=== PATIENT | female | born 1940 | race Caucasian/White ===

== ENCOUNTER 2019-02-07 13:14 | Emergency (ER) | payer MEDICARE, OTHER ==
[2019-02-07 14:18] LABS: #Lymphocytes 1.2 thou/uL (1.20-3.40); #Monocytes 0.5 thou/uL (0.11-0.59); #Neutrophils 3.4 thou/uL (1.40-6.50); %Basophils 0.1 % (0.0-1.0); %Eosinophils 0.8 % (0.0-10.0); %Lymphocytes 23.3 % (21.0-51.0); %Monocytes 10.5 % (0.0-10.0); %Neutrophils 65.3 % (42.0-75.0); Hemoglobin 12.2 g/dL (12.0-16.0); Mean Corpuscular HGB CONC 33.9 g/dL (32.0-36.0); Mean Corpuscular Hemoglobin 31.8 pg (27.0-31.0); Mean Corpuscular Volume 93.7 fL (78.0-98.0); Mean Platelet Volume 7.2 fL (7.4-10.4); Platelet Count 238 thou/uL (130-400); RBC Distribution Width 12.8 % (11.5-14.5); Red Blood Cell (RBC) Count 3.83 mill/uL (4.20-5.40); White Blood Cell (WBC) Count 5.1 thou/uL (4.8-10.8)
[2019-02-07 14:26] LABS: Prothrombin Time 13.5 SEC (12.0-14.7)
[2019-02-07 14:44] LABS: ALT (SGPT) 25 U/L (8-55); AST (SGOT) 28 U/L (5-34); Albumin 3.3 g/dL (3.4-4.8); Alkaline Phosphatase 59 U/L (40-110); Anion Gap 9 mmol/L (10-20); BUN (Urea Nitrogen) 12 mg/dL (9.8-20.1); Bilirubin, Total 0.6 mg/dL (0.2-1.2); Calc. Creatinine Clearance 0 mL/min (70-130); Calcium 8.8 mg/dL (7.8-10.44); Carbon Dioxide 27 mmol/L (23-31); Chloride 97 mmol/L (98-107); Estimated GFR-MDRD 85; Globulin 2.3 g/dL (2.4-3.5); Glucose 99 mg/dL (83-110); Potassium 3.7 mmol/L (3.5-5.1); Protein, Total 5.6 g/dL (6.0-8.3); Sodium 129 mmol/L (136-145)
--- NOTE | 2019-02-07 16:11 | CT ---
CT Abdomen Pelvis W Con: 02/07/2019 3:16 PM CLINICAL INFORMATION: Abdominal pain and blood red blood per rectum COMPARISON: 06/05/2011 TECHNIQUE: Multiple contiguous axial images were obtained and a CT of the abdomen and pelvis with IV contrast. C oronal and sagittal reformats were performed. FINDINGS: Lower Chest: within normal limits. Abdomen: Liver: within normal limits. Bile Ducts: Normal caliber. Gallbladder: No calcified gallstones. Normal caliber wall. Pancreas: within normal limits. Spleen: within normal limits. Adrenals: within normal limits. Kidneys: Hypodensities in the bilateral kidneys measuring up to 1.7 cm in size represent cysts. Pelvis: Reproductive Organs: No pelvic masses. Ureters: within normal limits. Bladder: within normal limits. Peritoneum: No ascites or free air, no fluid collection. Bowel: Normal caliber. There is thickening of the wall of the fundus of the stomach which may be seco ndary to decompression of this portion of the stomach. Mesentery and Retroperitoneum: No enlarged mesenteric or retroperitoneal lymph nodes. Vessels: Atherosclerotic calcifications. Abdominal Wall: within normal limits. Bones: Degenerative changes in the spine. IMPRESSION: 1. No evidence of acute intraabdominal or pelvic abnormality. 2. Bilateral renal cysts
== END 2019-02-07 16:40 | disposition home or self-care (01) ==
LOC: ERS 13:14
DX: K62.5 Hemorrhage of anus and rectum (principal); E78.5 Hyperlipidemia, unspecified; E78.00 Pure hypercholesterolemia, unspecified; I10 Essential (primary) hypertension; Z79.899 Other long term (current) drug therapy
CPT/HCPCS: 36415; 74177; 80053; 85025; 85610; 85730; 86850; 86900; 86901

== ENCOUNTER 2019-08-30 18:21 | Inpatient (IN) | payer MEDICARE, OTHER ==
[2019-08-30] MEDS ORDERED: Sodium Chloride 0.9% 1,000 ML IV SCH (23:30)
[2019-08-31] MEDS ORDERED: Acetaminophen 650 MG Suppository PR PRN (00:10)
--- NOTE | 2019-08-31 00:18 | PDOC.HHP ---
Hospitalist HPI - History of Present Illness Confusion History of Present Illness: Patient found resting comfortably in bed. She has no complaints. Reportedly brought in due to AMS and fever. She has known history of dementia. Initially seen at [facility]. She was started on treatment for pneumonia and had COVID testing done. Patient transferred here for further management. She states she is not sure why she is here but is aware that she is in the hospital. Able to answer some questions appropriately but not oriented to year. At present she has no complaints. ED Course: Labs notable for lactic acid of 0.9 and leukopenia. Started on Levaquin for pneumonia and COVID testing requested. (multiple allergies to medications) She received Tylenol for low grade fever. Chest Xray done showed increased bronchovascular markings and evidence for bilateral vascular congestion with borderline cardiomegaly. Subtle increased density over the right mid lung zone, concerning for minimal or early pneumonia. Costophrenic angle blunting bialterally. CT head done showed paranasal sinus mucosal disease, otherwise no acute changes. Hospitalist ROS - Review of Systems ROS unobtainable: due to mental status (Dementia at baseline, denies any complaints but does not remember why she is here, likely does not remember if she has been ill) Constitutional: reports: fever. denies: chills, sweats, weakness, malaise, other Eyes: denies: pain, vision change, conjunctivae inflammation, eyelid inflammation, redness, other ENT: denies: ear pain, ear discharge, nose pain, nose discharge, nose congestion , mouth pain, mouth swelling, throat pain, throat swelling, other Respiratory: denies: cough, dry, shortness of breath, hemoptysis, SOB with excertion, pleuritic pain, sputum, wheezing, other Cardiovascular: denies: chest pain, palpitations, orthopnea, paroxysmal noc. dyspnea, edema, light headedness, other Gastrointestinal: denies: nausea, vomiting, abdominal pain, diarrhea, constipation, melena, hematochezia, other Genitourinary: denies: dysuria, frequency, incontinence, hematuria, retention, other Musculoskeletal: denies: neck pain, shoulder pain, arm pain, back pain, hand pain, leg pain, foot pain, other Skin: denies: rash, lesions, yaneli, bruising, other Neurological: denies: weakness, numbness, incoordination, change in speech, confusion, seizures, other Other: Aware she is at the hospital. She thinks current president is Gerson Hewitt. Does not answer when asked day or year. Hospitalist History - Past Medical History Source: patient, RN notes reviewed Cardiac: reports: AFIB Psych: reports: Other (Dementia) - Past Surgical History Past Surgical History: reports: no pertinent history - Family History Family History: reports: no pertinent history - Social History Smoking Status: Never smoker Alcohol: reports: None Living Situation: With Family - Exam General Appearance: NAD Eye: PERRL, anicteric sclera ENT: normocephalic atraumatic, no oropharyngeal lesions, dry oral mucosa Neck: supple, no lymphadenopathy Heart: RRR, normal peripheral pulses Respiratory: CTAB, no wheezes, no rales, normal chest expansion, no tachypnea Gastrointestinal: soft, non-tender, non-distended, normal bowel sounds, no guarding, no rigidity Extremities: no edema Skin: no lesions, no rashes Neurological - other findings: Oriented to person and place Musculoskeletal: normal tone, normal strength Psychiatric: normal affect, A&O x 3 Psychiatric - other findings: known dementia Hospitalist Results - Labs Result Diagrams: 08/31/19 03:33 08/31/19 03:33 Hospitalist H&P A/P - Problem (1) Confusion Code(s): R41.0 - DISORIENTATION, UNSPECIFIED Status: Acute (2) Fever Code(s): R50.9 - FEVER, UNSPECIFIED Status: Acute (3) Pneumonia Code(s): J18.9 - PNEUMONIA, UNSPECIFIED ORGANISM Status: Acute (4) Suspected COVID-19 virus infection Code(s): R68.89 - OTHER GENERAL SYMPTOMS AND SIGNS Status: Acute (5) History of hypertension Code(s): Z86.79 - PERSONAL HISTORY OF OTHER DISEASES OF THE CIRCULATORY SYSTEM Status: Chronic (6) Chronic a-fib Code(s): I48.20 - CHRONIC ATRIAL FIBRILLATION, UNSPECIFIED Status: Chronic - Plan Plan: Continue IV antibiotics. Cardiomegaly noted on CXR, no known history of CHF. Check BNP. Fluids decreased from 100 cc/hr to 65 cc/hr. Continue isolation precautions COVID testing pending. UA/UCx Monitor BP Reconcile home meds once verified. Unable to confirm code status at present.
[2019-08-31] MEDS: Acetaminophen 325 MG TAB PO PRN ×2 (00:19→20:00)
[2019-08-31] MEDS ORDERED: Sodium Chloride 0.9% 1,000 ML IV SCH (00:35)
[2019-08-31 01:28] VITALS: BMI 19.3
[2019-08-31 03:45] LABS: #Eosinphils 0.1 thou/uL (0.0-0.7); #Lymphocytes 0.8 thou/uL (1.20-3.40); #Monocytes 0.7 thou/uL (0.11-0.59); #Neutrophils 4.7 thou/uL (1.40-6.50); %Basophils 0.3 % (0.0-1.0); %Eosinophils 1.1 % (0.0-10.0); %Lymphocytes 13.1 % (21.0-51.0); %Monocytes 10.3 % (0.0-10.0); %Neutrophils 75.2 % (42.0-75.0); Hemoglobin 10.4 g/dL (12.0-16.0); Mean Corpuscular HGB CONC 33.2 g/dL (32.0-36.0); Mean Corpuscular Hemoglobin 31.9 pg (27.0-31.0); Mean Platelet Volume 6.7 fL (7.4-10.4); Platelet Count 236 thou/uL (130-400); RBC Distribution Width 14.1 % (11.5-14.5); Red Blood Cell (RBC) Count 3.28 mill/uL (4.20-5.40); White Blood Cell (WBC) Count 6.3 thou/uL (4.8-10.8)
[2019-08-31 04:02] LABS: Anion Gap 10 mmol/L (10-20); BUN (Urea Nitrogen) 9 mg/dL (9.8-20.1); Calc. Creatinine Clearance 66 mL/min (70-130); Calcium 8.1 mg/dL (7.8-10.44); Carbon Dioxide 25 mmol/L (23-31); Chloride 102 mmol/L (98-107); Estimated GFR-MDRD Greater than 90; Glucose 92 mg/dL (83-110); Potassium 3.4 mmol/L (3.5-5.1); Sodium 134 mmol/L (136-145)
[2019-08-31] MEDS ORDERED: Loperamide HCl 2 MG CAP PO PRN (10:30)
[2019-08-31] MEDS ORDERED: Bisacodyl 5 MG TAB PO PRN (10:30)
[2019-08-31] MEDS ORDERED: Calcium Carbonate 500 MG ChewTAB PO PRN (10:30)
[2019-08-31] MEDS ORDERED: Docusate 100 MG CAP PO PRN (10:34)
[2019-08-31] MEDS ORDERED: hydrALAZINE 20 MG/ML VIAL SLOW IVP PRN (10:34)
[2019-08-31] MEDS ORDERED: Melatonin 3 MG TAB PO PRN (10:34)
[2019-08-31] MEDS ORDERED: Benzonatate 100 MG CAP PO PRN (10:34)
[2019-08-31] MEDS ORDERED: Albuterol 200 PUFF (6.7GM INHALER) INH PRN (10:48)
--- NOTE | 2019-08-31 13:57 | PDOC.EVN ---
Event Note - Event Note Event Note: Seen and examined. COVID 19 Pending. no sick contacts, no COVID contacts. Subjective low grade fever. Diagnosed with dementia, patient knows self and that she lives in [place], knows birthday. Does not know the year and states it is 1983. Does not know what city she lives. Does recognize she is in the hospital, though unable to identify name of hospital or the city we're in. Could not recall we are in the city of [place] at 5 minutes after being told. Reviewed home medications and restarted as appropriate. Time given for questions all answered in detail.
[2019-08-31] MEDS: Heparin 5,000 UNITS/ML VIAL SC SCH ×3 (17:12→20:37)
[2019-08-31 18:14] LABS: Bacteria/HPF None Seen HPF (None Seen); Bilirubin Negative (Negative); Blood, Urine Negative (Negative); Clarity Clear (Clear); Glucose, Urine (Dipstick) Normal (Negative); Leukocyte Negative Leu/uL (Negative); Nitrite Negative (Negative); Protein, Urine (Dipstick) Negative (Neg-Trace); RBC/HPF 0-3 HPF (0-3); Squamous Epithelial None Seen HPF (0-3); Urobilinogen Normal mg/dL (Less than 2); WBC/HPF 0-3 HPF (0-3)
[2019-08-31 18:15] LABS: Urine Culture Reflex No No
[2019-08-31] MEDS: Carvedilol 3.125 MG TAB PO SCH (19:59)
[2019-09-01] MEDS: Levothyroxine Sodium 112 MCG TAB PO SCH (05:35)
[2019-09-01] MEDS: Acetaminophen 325 MG TAB PO PRN ×2 (05:35→17:46)
[2019-09-01] MEDS: Furosemide 20 MG TAB PO SCH (07:40)
[2019-09-01] MEDS: Lisinopril 20 MG TAB PO SCH (07:40)
[2019-09-01] MEDS: Heparin 5,000 UNITS/ML VIAL SC SCH ×3 (07:40→20:27)
[2019-09-01] MEDS: Atorvastatin Calcium 20 MG TAB PO SCH (07:40)
[2019-09-01] MEDS: Carvedilol 3.125 MG TAB PO SCH ×2 (07:41→20:26)
--- NOTE | 2019-09-01 13:00 | PDOC.HOSPP ---
- Subjective Subjective: Seen and examined. Patient was agitated and confused in the night and very restless, this morning she is more somnolent and not answering questions as well as she did yesterday. Patient knows her name and birthdate, though quickly falls asleep with any further questioning. When I asked her what state she is in she responds [place] and then immediately fall back asleep. I attempted to call her and daughter at [phone], two attempts were made and it would not let me leave a voicemail. I will attempt to call again later and give a status update. - Objective Vital Signs & Weight: Vital Signs (12 hours) Temp Pulse Resp BP Pulse Ox 09/01/19 08:00 97.9 F 68 16 135/78 95 Weight Admit Weight 116 lb Weight 116 lb 8 oz Result Diagrams: 08/31/19 03:33 08/31/19 03:33 Radiology Reviewed by me: Yes Hospitalist ROS - Review of Systems All other systems reviewed; all pertinent +/- noted in HPI/Subj - Medication Medications: Active Medications Generic Name Dose Route Start Last Admin Trade Name Freq PRN Reason Stop Dose Admin Acetaminophen 650 mg 08/31/19 00:10 09/01/19 05:35 Tylenol PO 650 mg Q4H PRN Administration Headache/Fever/Mild Pain (1-3) Atorvastatin Calcium 60 mg 09/01/19 09:00 09/01/19 07:40 Lipitor PO 60 mg DAILY ASMITA Administration Carvedilol 3.125 mg 08/31/19 21:00 09/01/19 07:41 Coreg PO 3.125 mg BID ASMITA Administration Furosemide 20 mg 09/01/19 09:00 09/01/19 07:40 Lasix PO 20 mg DAILY ASMITA Administration Heparin Sodium (Porcine) 5,000 units 08/31/19 15:00 09/01/19 07:40 Heparin SC 5,000 units TID ASMITA Administration Levofloxacin 750 mg/ Device 150 mls @ 100 mls/hr 08/31/19 15:00 08/31/19 17: 11 IVPB 150 mls Q24HR ASMITA Administration Levothyroxine Sodium 112 mcg 09/01/19 06:00 09/01/19 05:35 Synthroid PO 112 mcg 0600 ASMITA Administration Lisinopril 30 mg 09/01/19 09:00 09/01/19 07:40 Zestril PO 30 mg DAILY ASMITA Administration Melatonin 3 mg 08/31/19 10:34 08/31/19 20:00 Melatonin PO 3 mg HSPRN PRN Administration Insomnia - Exam General Appearance: NAD Eye: PERRL ENT: normocephalic atraumatic, moist mucosa Neck: supple, symmetric, no lymphadenopathy Heart: no murmur, no gallops, no rubs Respiratory: CTAB, no wheezes, no rales, no ronchi, normal chest expansion, no tachypnea Gastrointestinal: soft, non-tender, no guarding, no rigidity Extremities: no edema Skin: no lesions, no rashes Neurological: cranial nerve grossly intact, no focal deficits Musculoskeletal: generalized weakness Psychiatric: oriented to person, flat affect, somnolent Psychiatric - other findings: knows date Hosp A/P (1) Dementia Code(s): F03.90 - UNSPECIFIED DEMENTIA WITHOUT BEHAVIORAL DISTURBANCE Status: Acute (2) Confusion Code(s): R41.0 - DISORIENTATION, UNSPECIFIED Status: Acute (3) Fever Code(s): R50.9 - FEVER, UNSPECIFIED Status: Acute (4) Pneumonia Code(s): J18.9 - PNEUMONIA, UNSPECIFIED ORGANISM Status: Acute (5) Suspected COVID-19 virus infection Code(s): R68.89 - OTHER GENERAL SYMPTOMS AND SIGNS Status: Acute (6) Chronic a-fib Code(s): I48.20 - CHRONIC ATRIAL FIBRILLATION, UNSPECIFIED Status: Chronic (7) History of hypertension Code(s): Z86.79 - PERSONAL HISTORY OF OTHER DISEASES OF THE CIRCULATORY SYSTEM Status: Chronic - Plan Plan: medical unit Covid 19 pending pulmonary specific antibiotics, coverage for Covid 19 limited secondary to medical allergies supplemental oxygen is needed for O2 saturation less than 88% breathing treatments as needed frequent reorientation patient was restless and agitated in the night, did not sleep will start low dose risperidone QHS to help calm the patient and aid in more restful sleep continue other home medications is able blood pressure control blood sugar control G.I. prophylaxis DVT prophylaxis Disposition: patient's family have elected for a do not resuscitate to not intubate status, we will honor their wishes.
[2019-09-01] MEDS: risperiDONE 0.25 MG TAB PO SCH (20:26)
[2019-09-02] MEDS: Levothyroxine Sodium 112 MCG TAB PO SCH (05:28)
[2019-09-02] MEDS: Furosemide 20 MG TAB PO SCH (07:53)
[2019-09-02] MEDS: Carvedilol 3.125 MG TAB PO SCH ×2 (07:53→20:07)
[2019-09-02] MEDS: Atorvastatin Calcium 20 MG TAB PO SCH (07:53)
[2019-09-02] MEDS: Lisinopril 20 MG TAB PO SCH (07:54)
[2019-09-02] MEDS: Heparin 5,000 UNITS/ML VIAL SC SCH ×3 (07:55→20:07)
--- NOTE | 2019-09-02 09:09 | RAD ---
CHEST 1 VIEW: Date: 09/02/2019 INDICATION: Shortness of breath. FINDINGS: COPD change and mild cardiomegaly is stable. Calcified granuloma in the right upper lobe is stable ap pearing. Mild blunting of the costophrenic angles is stable appearing. Interstitial opacities involvi ng the right lower lobe on the prior examination are no longer demonstrated. No consolidation is evid ent. Vascular calcifications of the aortic arch and advanced osteoarthritic change is similar appeari ng. IMPRESSION: 1. Resolution of interstitial opacities of the right lower lobe. 2. Persistent chronic lung changes. 3. Stable mild cardiomegaly. POS: [facility]
[2019-09-02 14:10] LABS: #Eosinphils 0.1 thou/uL (0.0-0.7); #Lymphocytes 1.1 thou/uL (1.20-3.40); #Monocytes 0.5 thou/uL (0.11-0.59); #Neutrophils 3.8 thou/uL (1.40-6.50); %Basophils 0.2 % (0.0-1.0); %Eosinophils 2.5 % (0.0-10.0); %Lymphocytes 19.2 % (21.0-51.0); %Monocytes 9.3 % (0.0-10.0); %Neutrophils 68.7 % (42.0-75.0); Mean Corpuscular HGB CONC 31.8 g/dL (32.0-36.0); Mean Corpuscular Hemoglobin 30.6 pg (27.0-31.0); Mean Platelet Volume 6.7 fL (7.4-10.4); Platelet Count 305 thou/uL (130-400); RBC Distribution Width 14.1 % (11.5-14.5); Red Blood Cell (RBC) Count 4.25 mill/uL (4.20-5.40); White Blood Cell (WBC) Count 5.5 thou/uL (4.8-10.8)
[2019-09-02 14:39] LABS: Anion Gap 12 mmol/L (10-20); BUN (Urea Nitrogen) 11 mg/dL (9.8-20.1); Calc. Creatinine Clearance 56 mL/min (70-130); Carbon Dioxide 29 mmol/L (23-31); Chloride 98 mmol/L (98-107); Estimated GFR-MDRD 85; Glucose 111 mg/dL (83-110); Potassium 3.4 mmol/L (3.5-5.1); Sodium 136 mmol/L (136-145)
--- NOTE | 2019-09-02 16:57 | PDOC.HOSPP ---
- Subjective Encounter Date: 09/02/19 Subjective: Doing well. Breathing comfortably. Denies complaints. - Objective Vital Signs & Weight: Vital Signs (12 hours) Temp Pulse Resp BP Pulse Ox 09/02/19 08:00 97.5 F L 83 18 149/81 H 93 L Weight Admit Weight 116 lb Weight 116 lb 8 oz Result Diagrams: 09/02/19 13:59 09/02/19 13:59 Hospitalist ROS - Medication Medications: Active Medications Generic Name Dose Route Start Last Admin Trade Name Freq PRN Reason Stop Dose Admin Acetaminophen 650 mg 08/31/19 00:10 09/01/19 17:46 Tylenol PO 650 mg Q4H PRN Administration Headache/Fever/Mild Pain (1-3) Atorvastatin Calcium 60 mg 09/01/19 09:00 09/02/19 07:53 Lipitor PO 60 mg DAILY ASMITA Administration Carvedilol 3.125 mg 08/31/19 21:00 09/02/19 07:53 Coreg PO 3.125 mg BID ASMITA Administration Furosemide 20 mg 09/01/19 09:00 09/02/19 07:53 Lasix PO 20 mg DAILY ASMITA Administration Heparin Sodium (Porcine) 5,000 units 08/31/19 15:00 09/02/19 07:55 Heparin SC 5,000 units TID ASMITA Administration Levothyroxine Sodium 112 mcg 09/01/19 06:00 09/02/19 05:28 Synthroid PO 112 mcg 0600 ASMITA Administration Lisinopril 30 mg 09/01/19 09:00 09/02/19 07:54 Zestril PO 30 mg DAILY ASMITA Administration Melatonin 3 mg 08/31/19 10:34 08/31/19 20:00 Melatonin PO 3 mg HSPRN PRN Administration Insomnia Risperidone 0.25 mg 09/01/19 21:00 09/01/19 20:26 Risperidone PO 0.25 mg HS ASMITA Administration - Exam General Appearance: NAD, awake alert Heart: no murmur, no gallops, no rubs, normal peripheral pulses, irregular Respiratory: CTAB, no wheezes, no rales, no ronchi, normal chest expansion, no tachypnea, normal percussion Gastrointestinal: soft, non-tender, non-distended, normal bowel sounds, no palpable masses, no hepatomegaly, no splenomegaly, no bruit Extremities: no cyanosis, no clubbing, no edema Skin: normal turgor Musculoskeletal: normal tone Psychiatric: normal affect, normal behavior Psychiatric - other findings: Mild disorientation consistent with baseline. Hosp A/P (1) Acute metabolic encephalopathy Code(s): G93.41 - METABOLIC ENCEPHALOPATHY Status: Acute (2) Dementia Code(s): F03.90 - UNSPECIFIED DEMENTIA WITHOUT BEHAVIORAL DISTURBANCE Status: Acute (3) Fever Code(s): R50.9 - FEVER, UNSPECIFIED Status: Acute (4) Pneumonia Code(s): J18.9 - PNEUMONIA, UNSPECIFIED ORGANISM Status: Acute (5) Suspected COVID-19 virus infection Code(s): R68.89 - OTHER GENERAL SYMPTOMS AND SIGNS Status: Acute (6) Chronic a-fib Code(s): I48.20 - CHRONIC ATRIAL FIBRILLATION, UNSPECIFIED Status: Chronic (7) History of hypertension Code(s): Z86.79 - PERSONAL HISTORY OF OTHER DISEASES OF THE CIRCULATORY SYSTEM Status: Chronic - Plan CXR actually looks better/resolved. Change to po abx. Oxygen pretty good on room air. Discussed with CM. Patient is from home. Has her and children to stay there and help her. Anticipate she can discharge tomorrow.
[2019-09-02] MEDS ORDERED: Potassium Chloride 20 MEQ TAB PO SCH (17:00)
[2019-09-02] MEDS: risperiDONE 0.25 MG TAB PO SCH (20:07)
[2019-09-03] MEDS: Levothyroxine Sodium 112 MCG TAB PO SCH (05:30)
[2019-09-03 07:40] VITALS: BP 143/83; TEMP 98.2
[2019-09-03] MEDS: Furosemide 20 MG TAB PO SCH (08:44)
[2019-09-03] MEDS: Lisinopril 20 MG TAB PO SCH (08:44)
[2019-09-03] MEDS: Atorvastatin Calcium 20 MG TAB PO SCH (08:44)
[2019-09-03] MEDS: Carvedilol 3.125 MG TAB PO SCH (08:46)
[2019-09-03] MEDS: Heparin 5,000 UNITS/ML VIAL SC SCH ×2 (08:46→15:38)
--- NOTE | 2019-09-04 08:42 | PQF ---
[employer] Water Conservation Specialist Crystal Reports [employer] MATT Peterson RENEE CHICAS MD [id number] [facility] [id number] CLINICAL DOCUMENTATION CLARIFICATION FORM: POST DISCHARGE Addendum to original discharge summary date: ____ Late entry note date: __ DATE: 09/04/19 ATTN: Renee Chavez Please exercise your independent, professional judgment in responding to the clarification form. Clinical indicators are provided on the bottom of this form for your review Can you please further clarify if COVID19 is ruled in or ruled out? Covid19 [ ] Ruled in diagnosis [ ] Continue to treat [ ] Resolved [x ] Ruled out diagnosis [ ] Cannot rule out diagnosis [ ] Other diagnosis [ ] Unable to determine In addition, please specify: Present on Admission (POA): [ ] Yes [ ] No [ ] Unable to determine For continuity of documentation, please document condition throughout progress notes and discharge summary. Thank You. CLINICAL INDICATORS - SIGNS / SYMPTOMS / LABS ED Provider pg.5- COVID 19 rule out H and P pg.1- She was started on treatment for pneumonia and has COVID testing done H and P pg.3- Suspected COVID 19 virus infection Event notes- no sick contact, no COVID contracts RISK FACTORS 79 years old- H and P pg.1 Pneumonia- H and P pg.3 Acute metabolic encephalopathy- Hospitalist PN pg.3 Dementia- Hospitalist PN pg.3 TREATMENTS Supplemental oxygen- Hospitalist PN pg.5 Chest X ray Albuterol sulfate 2puff- MAR DuoNeb 3ml Q4hrs- MAR Levofloxacin 150ml @100ml/hr IV- MAR (This form is maintained as a part of the permanent medical record) 2014 [employer]. All Rights Reserved [email or web address]
--- NOTE | 2019-09-04 14:06 | DIS ---
DATE OF ADMISSION: 08/30/2019 DATE OF DISCHARGE: 09/03/2019 DISCHARGE DIAGNOSES: 1. Community-acquired pneumonia. 2. Acute metabolic encephalopathy, likely exacerbation of underlying dementia. 3. Dementia. 4. Chronic atrial fibrillation. 5. History of hypertension. HISTORY OF PRESENT ILLNESS: The patient is an 79-year-old female, who presented to the hospital via the emergency department with fever and some altered mental status. The patient had underlying history of dementia. She initially presented to [place], where she had COVID testing done and initial treatment started for community-acquired pneumonia. HOSPITAL COURSE: The patient was admitted, started on broad-spectrum antibiotics including Rocephin and azithromycin for specifically community-acquired pneumonia. She had a followup chest x-ray, which showed substantial improvement in resolution of the interstitial opacities of the right lower lobe, some chronic lung changes and stable mild cardiomegaly. The patient was asymptomatic, breathing comfortably and had stable vital signs. She had a negative COVID test. She had an evaluation by physical therapy and was able to get up and walk 30 feet with a rolling walker and the recommendation was for discharge to home with family support. I contacted the patient's family. They were prepared to have the patient home and to come get her. PHYSICAL EXAMINATION: VITAL SIGNS: On the day of discharge, temperature is 97.9, pulse 68, respirations 16, O2 saturation 95% to 98% on room air, BP was 135/78. GENERAL: She was awake and alert. She was still mildly confused, but fully alert. HEART: Regular. LUNGS: Clear bilaterally with no wheezes or rales. ABDOMEN: Soft, nontender. EXTREMITIES: Had no edema. DISPOSITION: The patient is discharged to home. ACTIVITY: As tolerated. DIET: She has no dietary restrictions. DISCHARGE MEDICATIONS: Include Levaquin 500 mg p.o. daily. She will continue with her home medications including; 1. Levothyroxine 112 mcg p.o. daily. 2. Oxybutynin 5 mg daily. 3. Lisinopril 30 mg daily. 4. Lasix 20 mg daily. 5. Carvedilol 1 mg b.i.d. 6. Atorvastatin 60 mg one p.o. daily. FOLLOWUP: She is to follow up with Dr. Wang in 7 days in [place] and she can return to the hospital at any time should she have the need to do so. TIME SPENT: Total time in discharge activities was greater than 30 minutes. Job ID: [id number]
--- NOTE | 2019-09-05 23:54 | PQF ---
[employer] Product Ambassador Crystal Reports [facility]ENNIFERMAT[facility] RENEE CHICAS MD [id number] [facility] [id number] CLINICAL DOCUMENTATION CLARIFICATION FORM: POST DISCHARGE Addendum to original discharge summary date: ____ Late entry note date: __ DATE: 09/05/19 ATTN: Renee Chavez Please exercise your independent, professional judgment in responding to the clarification form. Clinical indicators are provided on the bottom of this form for your review Can you please further clarify the diagnosis of the patient? Please check appropriate box(es): [ ] Sepsis due to: (Pna, UTI, gangrenous gall bladder, etc.) [ ] Severe sepsis with acute organ dysfunction of: (Examples: respiratory failure, encephalopathy, acute kidney failure, other) [ x ] Localized infection without sepsis [ ] Other diagnosis [ ] Unable to determine In addition, please specify: Present on Admission (POA): [ ] Yes [ ] No [ ] Unable to determine For continuity of documentation, please document condition throughout progress notes and discharge summary. Thank You. CLINICAL INDICATORS - SIGNS / SYMPTOMS / LABS H and P pg.1- brought in due to AMS and Fever H and P pg.1- Confusion H and P pg.1- she was started on treatment for Pneumonia H and P pg.1- labs notable for lactic acid of 0.9 and leukopenia Chest X ray pg.1- resolution of interstitial opacities of the right lower lobe Vital signs: 09/01 Temp: 98.1F, Pulse 105H, Respi 18, BP 150/90 RISK FACTORS Pneumonia- H and P pg.3 79 years old- H and P pg.1 Acute metabolic encephalopathy- Hospitalist PN pg.3 TREATMENTS: Chest X ray 09/01 IV Fluids- MAR Levofloxacin 750mg IV- MAR Albuterol 2 puff- MAR O2 supplementation (This form is maintained as a part of the permanent medical record) 2014 [employer]. All Rights Reserved [email or web address]
--- NOTE | 2019-09-05 23:57 | PQF ---
MATT RODRIGUEZ DAVID R MD [id number] CLINICAL DOCUMENTATION CLARIFICATION FORM: POST DISCHARGE Addendum to original discharge summary date: ____ Late entry note date: __ DATE: 09/05/19 ATTN: Mckinley Chavez Please exercise your independent, professional judgment in responding to the clarification form. Clinical indicators are provided on the bottom of this form for your review Can you please further clarify the specificity of Pneumonia? Please check appropriate box(s): [ ] Aspiration Pneumonia [ ] Aspiration Bronchitis [ ] Empirically treating Gram Negative Pneumonia [ ] Empirically treating Anaerobic Pneumonia [ ] Pneumonia secondary to (specify organism / underlying disease) [ x ] Simple Pneumonia (community acquired - nosocomial) [ ] Bronchopneumonia [ ] Pneumonia of unknown etiology [ ] Other diagnosis please specify [ ] Unable to determine In addition, please specify: Present on Admission (POA): [ ] Yes [ ] No [ ] Unable to determine For continuity of documentation, please document condition throughout progress notes and discharge summary. Thank You. CLINICAL INDICATORS - SIGNS / SYMPTOMS / LABS Chest X ray pg.1- resolution of interstitial opacities of the right lower lobe Vital signs: 09/01 Temp: 98.1F, Pulse 105H, Respi 18, BP 150/90 H and P pg.1- brought in due to AMS and Fever H and P pg.1- Confusion H and P pg.1- she was started on treatment for Pneumonia H and P pg.1- labs notable for lactic acid of 0.9 and leukopenia RISK FACTORS Pneumonia- H and P pg.3 79 years old- H and P pg.1 Acute metabolic encephalopathy- Hospitalist PN pg.3 TREATMENTS: Chest X ray 09/01 IV Fluids- MAR Levofloxacin 750mg IV- MAR Albuterol 2 puff- MAR O2 supplementation (This form is maintained as a part of the permanent medical record) 2014 [employer] All Rights Reserved [email or web address]
== END 2019-09-03 18:59 | disposition home or self-care (01) | DRG 193 ==
LOC: ERS 18:21 → T4-B 20:00
PROVIDERS: ADMIT Internal Medicine; ATTEND Internal Medicine
PROC: 8E0ZXY6 Isolation (ICD-10-PCS; principal; 2019-08-30)
DX: J18.9 Pneumonia, unspecified organism (principal); G93.41 Metabolic encephalopathy; I48.20 Chronic atrial fibrillation, unspecified; Z20.828 Contact with and (suspected) exposure to other viral communicable diseases; Z66 Do not resuscitate; E78.00 Pure hypercholesterolemia, unspecified; E78.5 Hyperlipidemia, unspecified; F03.90 Unspecified dementia, unspecified severity, without behavioral disturbance, psychotic disturbance, mood disturbance, and anxiety; I10 Essential (primary) hypertension; Z88.0 Allergy status to penicillin; Z88.8 Allergy status to other drugs, medicaments and biological substances; Z88.1 Allergy status to other antibiotic agents; Z79.899 Other long term (current) drug therapy
CPT/HCPCS: 36415; 71045; 80048; 81001; 83880; 85025; 99284; J1644; J1956

== ENCOUNTER 2019-09-04 10:48 | Emergency (ER) | payer MEDICARE, OTHER ==
[2019-09-04 11:38] LABS: #Eosinphils 0.2 thou/uL (0.0-0.7); #Lymphocytes 1.3 thou/uL (1.20-3.40); #Monocytes 0.5 thou/uL (0.11-0.59); #Neutrophils 2.7 thou/uL (1.40-6.50); %Basophils 0.4 % (0.0-1.0); %Eosinophils 3.5 % (0.0-10.0); %Lymphocytes 28.1 % (21.0-51.0); %Monocytes 10.7 % (0.0-10.0); %Neutrophils 57.3 % (42.0-75.0); Hemoglobin 11.3 g/dL (12.0-16.0); Mean Corpuscular Hemoglobin 31.4 pg (27.0-31.0); Mean Corpuscular Volume 95.2 fL (78.0-98.0); Mean Platelet Volume 6.5 fL (7.4-10.4); Platelet Count 287 thou/uL (130-400); RBC Distribution Width 13.9 % (11.5-14.5); Red Blood Cell (RBC) Count 3.58 mill/uL (4.20-5.40); White Blood Cell (WBC) Count 4.8 thou/uL (4.8-10.8)
[2019-09-04 11:59] LABS: ALT (SGPT) 16 U/L (8-55); AST (SGOT) 25 U/L (5-34); Albumin 2.8 g/dL (3.4-4.8); Alkaline Phosphatase 63 U/L (40-110); Anion Gap 11 mmol/L (10-20); BUN (Urea Nitrogen) 13 mg/dL (9.8-20.1); Bilirubin, Total 0.5 mg/dL (0.2-1.2); Calc. Creatinine Clearance 0 mL/min (70-130); Calcium 8.3 mg/dL (7.8-10.44); Carbon Dioxide 29 mmol/L (23-31); Chloride 99 mmol/L (98-107); Estimated GFR-MDRD 83; Globulin 2.1 g/dL (2.4-3.5); Glucose 85 mg/dL (83-110); Potassium 3.8 mmol/L (3.5-5.1); Protein, Total 4.9 g/dL (6.0-8.3); Sodium 135 mmol/L (136-145)
--- NOTE | 2019-09-04 12:32 | RAD ---
CHEST 1 VIEW: Date: 09/04/2019 HISTORY: Altered mental status. COMPARISON: 09/02/2019. FINDINGS: Stable cardiomegaly. Old granulomatous disease. Mild increased linear and interstitial markings bilat erally. Evidence for some chronic change with some chronic blunting of the costophrenic angles. IMPRESSION: Evidence for stable chronic change. No evidence for pneumonia or other significant new process. Ather osclerosis of aorta with ectasis. POS: [facility]
[2019-09-04 13:03] LABS: Actual Bicarbonate (HCO3a) 25.3 mEq/L (22-28); Analyzer IN Cardio ER; Base Excess (BEa) 1.9 mEq/L (-2.0 to +3.0); CO2 Tension 35.7 mmHg (35.0-45.0); Calcium, Ionized 1.17 mmol/L (1.12-1.30); Carboxyhemoglobin (COHb) 0.1 gm% (0.0-3.0); Hemoglobin (Hb) 11.5 g/dL (12.0-16.0); Potassium - ABG Lab 3.56 mmol/L (3.70-5.30); pH, Arterial 7.47 (7.35-7.45)
[2019-09-04 13:05] LABS: ALV-art Gradient 40.105 (0-20); Puncture Site RRA
== END 2019-09-04 16:53 ==
LOC: ERS 10:48
DX: J18.9 Pneumonia, unspecified organism (principal); R09.02 Hypoxemia; F03.90 Unspecified dementia, unspecified severity, without behavioral disturbance, psychotic disturbance, mood disturbance, and anxiety; I10 Essential (primary) hypertension; E78.5 Hyperlipidemia, unspecified; E78.00 Pure hypercholesterolemia, unspecified; Z79.899 Other long term (current) drug therapy; Z79.891 Long term (current) use of opiate analgesic
CPT/HCPCS: 71045; 80053; 82805; 83605; 85025; 87040; J1956; 36415; 96365; 96366

== ENCOUNTER 2019-11-19 03:13 | Inpatient (IN) | payer MEDICARE, OTHER ==
[2019-11-19 04:18] LABS: Bilirubin Negative (Negative); Blood, Urine Negative (Negative); Clarity Clear (Clear); Glucose, Urine (Dipstick) Normal (Negative); Ketone, Urine Negative (Negative); Leukocyte Negative Leu/uL (Negative); Nitrite Negative (Negative); Protein, Urine (Dipstick) Negative (Neg-Trace); Specific Gravity, Urine 1.009 (1.002-1.036); Urobilinogen Normal mg/dL (Less than 2); pH, Urine 6.5 (5.0-9.0)
[2019-11-19 04:21] LABS: #Monocytes 0.7 thou/uL (0.11-0.59); #Neutrophils 6.9 thou/uL (1.40-6.50); %Basophils 0.5 % (0.0-1.0); %Eosinophils 0.4 % (0.0-10.0); %Lymphocytes 11.2 % (21.0-51.0); %Monocytes 7.5 % (0.0-10.0); %Neutrophils 80.4 % (42.0-75.0); Hemoglobin 11.4 g/dL (12.0-16.0); Mean Corpuscular HGB CONC 34.5 g/dL (32.0-36.0); Mean Corpuscular Hemoglobin 29.1 pg (27.0-31.0); Mean Corpuscular Volume 84.3 fL (78.0-98.0); Mean Platelet Volume 6.5 fL (7.4-10.4); Platelet Count 366 thou/uL (130-400); RBC Distribution Width 13.5 % (11.5-14.5); Red Blood Cell (RBC) Count 3.93 mill/uL (4.20-5.40); White Blood Cell (WBC) Count 8.6 thou/uL (4.8-10.8)
[2019-11-19 04:44] LABS: ALT (SGPT) 17 U/L (8-55); AST (SGOT) 33 U/L (5-34); Albumin 3.6 g/dL (3.4-4.8); Alkaline Phosphatase 82 U/L (40-110); Anion Gap 10 mmol/L (10-20); BUN (Urea Nitrogen) 15 mg/dL (9.8-20.1); Calc. Creatinine Clearance 0 mL/min (70-130); Calcium 8.6 mg/dL (7.8-10.44); Carbon Dioxide 34 mmol/L (23-31); Estimated GFR-MDRD 79; Globulin 2.7 g/dL (2.4-3.5); Glucose 120 mg/dL (83-110); Protein, Total 6.3 g/dL (6.0-8.3)
[2019-11-19 04:48] LABS: Chloride 73 mmol/L (98-107); Potassium 2.2 mmol/L (3.5-5.1); Sodium 115 mmol/L (136-145)
[2019-11-19] MEDS ORDERED: Sodium Chloride 0.9% 1,000 ML IV SCH (06:45)
--- NOTE | 2019-11-19 06:51 | HP ---
REASON FOR ADMISSION: Change in mental status. HISTORY OF PRESENT ILLNESS: This is an 79-year-old female patient who was brought to the emergency room for increased somnolence and disorientation. In the ER, she appears to be comfortable, in no acute distress, but confused. She does follow commands. An attempt was made to contact her family members, we are waiting for them to call us back. I did review her records and it seems that she was recently in our hospital, discharged approximately a month ago. She was admitted for suspicion for left-sided weakness with confusion. It was thought that maybe she had a TIA. During her stay, she did undergo CT angio of the brain and MRI of the brain. Workup was negative for acute infarct or bleed, she remained neurologically stable, it was documented that her baseline was that she is slightly demented, she was seen by Neurology and deemed to be stable to be discharged home and since her systolic blood pressure was between 96 and 100, her Lasix was switched to alternate day therapy. PAST MEDICAL HISTORY: 1. Pneumonia. 2. Paroxysmal atrial fibrillation. 3. Dementia. 4. Left shoulder repair. 5. Cataract surgery. 6. High cholesterol. ALLERGIES: TO CEPHALOSPORIN, DIPHENHYDRAMINE, ERYTHROMYCIN, PENICILLIN, AND THEOPHYLLINE. SOCIAL HISTORY: She does not smoke. Does not drink alcohol. FAMILY HISTORY: Unable to obtain due to her confusion. REVIEW OF SYSTEMS: Unable to obtain due to her confusion. PHYSICAL EXAMINATION: GENERAL: She is awake, but she is confused. VITAL SIGNS: Blood pressure 117/64, heart rate 72, temperature is 97.7, saturating 93% on room air. HEAD: Nontraumatic, normocephalic. Pupils equal, reactive. Extraocular movements are intact. Nonicteric sclerae. Well injected conjunctivae. Oral mucosa normal. Nasal mucosa normal. NECK: Supple. No adenopathy. No murmur. Thyroid is not palpable. Trachea is midline. No supraclavicular adenopathy. HEART: S1, S2. Regular. No murmurs, no gallops. No friction rubs. No displacement of PMI. LUNGS: Clear to auscultation bilaterally. ABDOMEN: Bowel sounds are positive. Nontender abdomen. No lower extremity edema. No cyanosis. NEURO: She is moving all her 4 extremities. LABORATORY DATA: Blood work shows sodium 115, potassium 2.2, bicarb 34, glucose 120. Troponin 0.024. BNP 125. WBC 8.6, hemoglobin 11.4, platelets of 366. Urinalysis does not show any evidence of infection. Chest x-ray does not show any abnormality. Brain CT not read yet, but appears to be normal. ASSESSMENT AND PLAN: This is an 79-year-old female patient presenting with confusion, most likely secondary to severe hyponatremia in the setting of diuretic therapy. Neurology. The patient will be admitted to [facility] and we will do frequent neuro checks. She recently had a workup for stroke and everything was negative. We would not repeat any workup for now since her hyponatremia can explain her current symptomatology. Renal system, electrolytes. The patient will be receiving IV fluids. We will recheck her electrolytes later on. We will continue holding her Lasix, replenish her potassium, check a TSH, and ask Nephrology to see her in consultation. For deep venous thrombosis prophylaxis, she will be on heparin subcutaneously. I am awaiting for her med rec to be done to reconcile her medications. Job ID: [id number]
--- NOTE | 2019-11-19 07:24 | CT ---
PRELIMINARY REPORT/[facility]/EMERGENCY AFTER HOURS PROCEDURE History: AMS. CT head without contrast. Comparison: 09/06/2019. Findings: There is no evidence of acute intracranial hemorrhage. The ventricular system is not dilate d. Global volume loss. No masses, mass effect or focal fluid collections are noted. Moderate periventricular chronic white matter ischemic changes. [place]-white matter differentiation is well-maintained. Visualized portions of the orbits are normal in appearance. Mild sinus mucosal thickening. Trace fl uid in the right maxillary sinus. The calvarium and overlying soft tissues are unremarkable. Impression: 1. No evidence of acute intracranial process. Chronic senescent changes. No adverse interval allan e. 2. Sinus mucosal disease with trace right maxillary fluid. Correlate for symptoms of sinusitis. ELECTRONICALLY SIGNED BY: Dada Heart MD November 19, 2019 4:45:35 AM CDT This report is intended for review by the ordering physician only, in accordance of law. If you recei ve this report in error, please call [facility] at [phone]. FINAL REPORT Exam: Head CT without contrast HISTORY: Lower extremity weakness. Altered mental status. COMPARISON: 09/06/2019 FINDINGS: Hemorrhage: No intraparenchymal hemorrhage or extra-axial hematoma. Brain parenchyma: Cortical [place]-white matter differentiation is preserved. No mass effect or midline shift. Basilar cisterns are patent.Stable white matter hypodensities due to chronic small vessel ischemic change. Ventricular system: Ventricles and sulci are patent and symmetric. Calvarium: Intact. Sinuses and mastoid air cells: Minimal right maxillary sinus disease. IMPRESSION: 1. This report is in agreement with initial report by [facility]. 2. No acute intracranial process. Transcribed Date/Time: 11/19/2019 8:03 AM
--- NOTE | 2019-11-19 07:46 | RAD ---
EXAM: CHEST ONE VIEW HISTORY: Dyspnea. Shortness of breath. COMPARISON: 10/16/2019 FINDINGS: Cardiac silhouette is magnified by projection but mildly enlarged. Pulmonary vasculature is similar t o the prior study. No consolidation or pleural fluid is seen. Remote left-sided rib fractures are again seen. Vascular calcifications are again seen in the thoracic aorta. Chest is overall stable com pared to prior exam. IMPRESSION: Cardiomegaly with pulmonary vasculature is normal to borderline increased.
[2019-11-19] MEDS: Potassium Chloride 20 MEQ in Premix Bag 1 BAG IVPB SCH ×2 (08:23→10:30)
[2019-11-19] MEDS: Heparin 5,000 UNITS/ML VIAL SC SCH ×3 (08:24→20:59)
[2019-11-19 09:39] LABS: Anion Gap 13 mmol/L (10-20); BUN (Urea Nitrogen) 12 mg/dL (9.8-20.1); Calc. Creatinine Clearance 62 mL/min (70-130); Calcium 8.3 mg/dL (7.8-10.44); Carbon Dioxide 30 mmol/L (23-31); Chloride 77 mmol/L (98-107); Estimated GFR-MDRD 85; Glucose 104 mg/dL (83-110); Magnesium 1.5 mg/dL (1.6-2.6)
[2019-11-19 09:42] LABS: Potassium 2.5 mmol/L (3.5-5.1); Sodium 117 mmol/L (136-145)
[2019-11-19] MEDS ORDERED: Magnesium Sulfate 3 GM in Sodium Chloride 0.9% 100 ML IVPB SCH (10:00)
--- NOTE | 2019-11-19 10:05 | PDOC.HOSPP ---
- Subjective Encounter Date: 11/19/19 Encounter Time: 10:02 Subjective: calm, oriented to person and place - Objective Vital Signs & Weight: Vital Signs (12 hours) Pulse Ox 11/19/19 08:00 98 Weight Weight 129 lb 12.8 oz Most Recent Monitor Data Heart Rate from ECG 81 Respiration from ECG 21 SpO2 96 Result Diagrams: 11/19/19 04:11 11/19/19 09:05 Hospitalist ROS - Medication Medications: Active Medications Generic Name Dose Route Start Last Admin Trade Name Jimmy PRN Reason Stop Dose Admin Heparin Sodium (Porcine) 5,000 units 11/19/19 09:00 11/19/19 08:24 Heparin SC 5,000 units TID ASMITA Administration Potassium Chloride 20 meq/ 100 mls @ 50 mls/hr 11/19/19 07:00 11/19/19 08:23 Device IVPB 11/19/19 10:59 100 mls Q2H ASMITA Administration Sodium Chloride 10 ml 11/19/19 09:00 11/19/19 08:24 Flush - Normal Saline IVF 10 ml Q12HR ASMITA Administration - Exam General Appearance: awake alert Neck: no JVD Heart: RRR, murmur present, II/IV Respiratory: CTAB Gastrointestinal: soft, normal bowel sounds Extremities: no edema Hosp A/P (1) Hyponatremia Code(s): E87.1 - HYPO-OSMOLALITY AND HYPONATREMIA Status: Acute (2) Hypokalemia Code(s): E87.6 - HYPOKALEMIA Status: Acute (3) Paroxysmal atrial fibrillation Code(s): I48.0 - PAROXYSMAL ATRIAL FIBRILLATION Status: Acute (4) Hypothyroid Code(s): E03.9 - HYPOTHYROIDISM, UNSPECIFIED Status: Chronic Qualifiers: Hypothyroidism type: unspecified Qualified Code(s): E03.9 - Hypothyroidism , unspecified (5) Dyslipidemia Code(s): E78.5 - HYPERLIPIDEMIA, UNSPECIFIED Status: Chronic - Plan NS 75 ml/hr replace K+ hold diuretics cont b-alicia monitor electrolytes
[2019-11-19] MEDS: Sodium Chloride 0.9% 1,000 ML IV SCH (10:30)
[2019-11-19] MEDS: Potassium Chloride 20 MEQ TAB PO SCH ×3 (10:30→16:06)
--- NOTE | 2019-11-19 13:06 | CON ---
DATE OF CONSULTATION: 11/19/2019 SERVICE: Nephrology. REASON FOR CONSULTATION: Severe hyponatremia. REQUESTING PHYSICIAN: Carina Arcos MD. HISTORY OF PRESENT ILLNESS: An 79-year-old female with past medical history significant for paroxysmal atrial fibrillation, dementia, and recent hospitalization for pneumonia, who was just discharged from this hospital about a month ago, brought in by EMS due to acute change in mental status associated with generalized weakness. Daughter had reported that the patient was recently started on new medication thiazide, following which she lost some weight in the last several days. About the same time, the patient was noted to be confused, unable to express herself and acting abnormal. She was subsequently brought to the hospital. Evaluation with chemistry showed severe hyponatremia of 115, hence Nephrology consulted. Of note, the patient received a liter of normal saline in the ER for possible dehydration and was subsequently started on normal saline 175 mL/h. Above history was obtained from review of medical record and the patient is confused and unable to provide any significant history. No family member is at bedside. The patient recently had a left-sided weakness concerning for TIA about a month ago. During that stay, she was evaluated with CT angio and MRI of the brain, which were unremarkable. The patient is awake, but she is confused. Speech is also incoherent and confused. PAST MEDICAL HISTORY: 1. Paroxysmal atrial fibrillation. 2. Dementia. 3. Hyperlipidemia. 4. Hypertension. 5. Hypothyroidism. PAST SURGICAL HISTORY: 1. Cataract surgery. 2. Left shoulder repair. FAMILY HISTORY: Unable to obtain due to confusion. SOCIAL HISTORY: Lives with daughter. ALLERGIES: REPORTED ALLERGY AND ADVERSE REACTION TO CEPHALOSPORIN, DIPHENHYDRAMINE, ERYTHROMYCIN, PENICILLIN, AND THEOPHYLLINE. MEDICATIONS: Prior to hospital medications are as follows; 1. Lipitor 20 mg p.o. daily at bedtime. 2. Carvedilol 3.125 mg p.o. b.i.d. 3. Furosemide 20 mg p.o. daily. 4. Synthroid 125 mcg p.o. daily. 5. Metolazone 5 mg p.o. daily. 6. Mirtazapine 7.5 mg p.o. daily at bedtime. 7. Oxybutynin chloride 10 mg p.o. daily. 8. Potassium chloride 10 mEq p.o. daily. 9. Aspirin 81 mg p.o. daily. 10. Lisinopril 2.5 mg p.o. daily. REVIEW OF SYSTEMS: Could not be performed due to the patient's condition. PHYSICAL EXAMINATION: VITAL SIGNS: Temperature 98.2, pulse 87, respiratory rate 24, SpO2 of 97% on room air, blood pressure 119/67. GENERAL: Comfortable, but confused elderly female, in no obvious distress. Afebrile. Anicteric. Acyanotic. HEENT: Normocephalic, atraumatic. Oral mucosa is mildly dry. NECK: Supple with no obvious JVD. CARDIOVASCULAR: Regular rhythm and rate with normal heart sounds 1 and 2. RESPIRATORY: Fair air entry bilaterally few transmitted breath sounds, but no obvious crackle or rhonchi or use of accessory muscles. GI: Full, soft, nontender, nondistended with normal bowel sounds. MUSCULOSKELETAL: Extremities are grossly normal looking atraumatic with no obvious edema or erythema. [employer]: The patient is conscious and awake. She is oriented to person. She is confused and disoriented. Cranial nerves 2 through 12 are grossly intact. The patient moves all extremities. DIAGNOSTIC DATA: CBC on presentation showed WBC 8.6, hemoglobin 11.4, MCV 84.3, platelet 366. Chemistry on presentation showed sodium 115, potassium 2.2, chloride 73, CO2 of 34, BUN 15, creatinine 0.71, glucose 120, calcium 8.6, bilirubin 1.0, AST 33, ALT 17, alkaline phosphatase 82, total protein 6.3, albumin 3.6. Cardiac markers showed troponin 0.024. BNP 125. Lactic acid is 0.7. Urinalysis on presentation showed clear colorless urine with pH of 6.5, specific gravity of 1.009. Negative protein, ketone, blood, nitrite, bilirubin, and leukocyte esterase. ASSESSMENT: 1. Acute encephalopathy: Most likely due to severe hyponatremia superimposed on baseline dementia. 2. Severe and symptomatic hyponatremia: Most likely due to syndrome of inappropriate antidiuretic hormone secretion related to thiazide diuretics and severe hypokalemia. The patient has had recurrent hyponatremias as noted in previous hospitalization. 3. Possible syndrome of inappropriate antidiuretic hormone secretion. 4. Severe hypokalemia. 5. The patient was recently started on thiazide diuretics and this most likely is responsible for the hypokalemia. 6. History of dementia. 7. Hypothyroidism. 8. History of hypertension: Blood pressure is well controlled. PLAN: 1. We will get stat BMP as well as urine osmolality and plasma osmolality. We will also get urine sodium. We will also replete serum potassium with potassium chloride orally. We will give 120 mEq of potassium chloride. 2. We will also get serum magnesium. 3. Start BMP reviewed and this showed a sodium of 117, potassium of 2.5, chloride 77, CO2 of 30, BUN 12, creatinine 0.67. 4. Serum osmolality is 242, while urine osmolality is 325. 5. Magnesium is 1.5. 6. We will give 3 g of magnesium sulfate with a view to correcting serum potassium. 7. We will stop normal saline infusion. 8. We will start fluid restriction at 1500. 9. We would not be giving hypertonic solution at this point as the patient is already up by 2 units. We will monitor electrolytes with repletion of serum potassium. 10. We will repeat BMP in next 4 hours. Further treatment to follow depending on hospital course. Job ID: [id number]
[2019-11-19 13:21] LABS: Anion Gap 14 mmol/L (10-20); BUN (Urea Nitrogen) 11 mg/dL (9.8-20.1); Calc. Creatinine Clearance 60 mL/min (70-130); Calcium 8.4 mg/dL (7.8-10.44); Carbon Dioxide 29 mmol/L (23-31); Chloride 77 mmol/L (98-107); Estimated GFR-MDRD 81; Glucose 112 mg/dL (83-110); Potassium 3.1 mmol/L (3.5-5.1)
[2019-11-19 13:23] LABS: Sodium 117 mmol/L (136-145)
[2019-11-19 18:37] LABS: Anion Gap 11 mmol/L (10-20); BUN (Urea Nitrogen) 11 mg/dL (9.8-20.1); Calc. Creatinine Clearance 63 mL/min (70-130); Calcium 8.6 mg/dL (7.8-10.44); Carbon Dioxide 31 mmol/L (23-31); Chloride 83 mmol/L (98-107); Estimated GFR-MDRD 86; Glucose 97 mg/dL (83-110); Potassium 3.6 mmol/L (3.5-5.1); Sodium 121 mmol/L (136-145)
[2019-11-19 20:38] LABS: Anion Gap 10 mmol/L (10-20); BUN (Urea Nitrogen) 10 mg/dL (9.8-20.1); Calc. Creatinine Clearance 63 mL/min (70-130); Calcium 8.2 mg/dL (7.8-10.44); Carbon Dioxide 30 mmol/L (23-31); Chloride 84 mmol/L (98-107); Estimated GFR-MDRD 86; Glucose 92 mg/dL (83-110); Potassium 3.5 mmol/L (3.5-5.1); Sodium 120 mmol/L (136-145)
[2019-11-19] MEDS: Atorvastatin Calcium 20 MG TAB PO SCH (20:59)
[2019-11-19] MEDS: Carvedilol 3.125 MG TAB PO SCH (20:59)
[2019-11-19] MEDS ORDERED: Carvedilol 3.125 MG TAB PO SCH (21:00)
[2019-11-20 01:24] LABS: Anion Gap 9 mmol/L (10-20); BUN (Urea Nitrogen) 10 mg/dL (9.8-20.1); Calc. Creatinine Clearance 62 mL/min (70-130); Calcium 8.1 mg/dL (7.8-10.44); Carbon Dioxide 31 mmol/L (23-31); Chloride 87 mmol/L (98-107); Estimated GFR-MDRD 85; Glucose 88 mg/dL (83-110); Potassium 3.4 mmol/L (3.5-5.1); Sodium 124 mmol/L (136-145)
[2019-11-20] MEDS: Sodium Chloride 0.9% 1,000 ML IV SCH (02:01)
[2019-11-20 04:11] LABS: #Eosinphils 0.1 thou/uL (0.0-0.7); #Lymphocytes 0.9 thou/uL (1.20-3.40); #Monocytes 0.6 thou/uL (0.11-0.59); #Neutrophils 5.6 thou/uL (1.40-6.50); %Eosinophils 1.7 % (0.0-10.0); %Lymphocytes 12.9 % (21.0-51.0); %Monocytes 8.2 % (0.0-10.0); %Neutrophils 77.2 % (42.0-75.0); Hemoglobin 11.3 g/dL (12.0-16.0); Mean Corpuscular HGB CONC 33.5 g/dL (32.0-36.0); Mean Corpuscular Hemoglobin 29.2 pg (27.0-31.0); Mean Corpuscular Volume 87.2 fL (78.0-98.0); Mean Platelet Volume 6.7 fL (7.4-10.4); Platelet Count 343 thou/uL (130-400); RBC Distribution Width 13.6 % (11.5-14.5); Red Blood Cell (RBC) Count 3.85 mill/uL (4.20-5.40); White Blood Cell (WBC) Count 7.2 thou/uL (4.8-10.8)
[2019-11-20 04:12] LABS: Phosphorus 2.4 mg/dL (2.3-4.7)
[2019-11-20 04:17] LABS: Anion Gap 11 mmol/L (10-20); BUN (Urea Nitrogen) 10 mg/dL (9.8-20.1); Calc. Creatinine Clearance 63 mL/min (70-130); Calcium 7.6 mg/dL (7.8-10.44); Carbon Dioxide 28 mmol/L (23-31); Chloride 88 mmol/L (98-107); Estimated GFR-MDRD 86; Glucose 79 mg/dL (83-110); Potassium 3.5 mmol/L (3.5-5.1); Sodium 123 mmol/L (136-145)
[2019-11-20] MEDS: Potassium Chloride 20 MEQ TAB PO SCH ×2 (05:31→09:48)
[2019-11-20] MEDS: Levothyroxine Sodium 125 MCG TAB PO SCH (05:32)
[2019-11-20 07:56] LABS: Anion Gap 11 mmol/L (10-20); BUN (Urea Nitrogen) 10 mg/dL (9.8-20.1); Calc. Creatinine Clearance 67 mL/min (70-130); Calcium 8.2 mg/dL (7.8-10.44); Carbon Dioxide 27 mmol/L (23-31); Chloride 90 mmol/L (98-107); Estimated GFR-MDRD Greater than 90; Glucose 84 mg/dL (83-110); Potassium 3.6 mmol/L (3.5-5.1); Sodium 124 mmol/L (136-145)
[2019-11-20] MEDS ORDERED: Levothyroxine Sodium 112 MCG TAB PO SCH (09:00)
[2019-11-20] MEDS: Heparin 5,000 UNITS/ML VIAL SC SCH ×3 (09:47→20:58)
[2019-11-20] MEDS: Carvedilol 3.125 MG TAB PO SCH ×2 (09:47→21:00)
[2019-11-20] MEDS: Aspirin 81 mg Enteric Coated Tablet PO SCH (09:47)
--- NOTE | 2019-11-20 10:12 | PRG ---
DATE OF SERVICE: 11/20/2019 SERVICE: Nephrology. SUBJECTIVE: An 79-year-old female seen in followup for symptomatic hyponatremia. The patient is more awake and conversational today. She is tolerating oral intake. No fever, nausea, or vomiting. OBJECTIVE: VITAL SIGNS: Temperature 97.2, pulse 94, respiratory rate 21, and blood pressure 117/60. I and O in the last 24 hours showed total intake of 840 with total output of 1250. This, however, is inconclusive as the patient is incontinent and most of the void were not calculated. GENERAL: Comfortable elderly female, in no obvious distress. Afebrile. Anicteric. Acyanotic. HEENT: Normocephalic, atraumatic. Oral mucosa is mildly dry. NECK: Supple with no JVD. CARDIOVASCULAR: Regular rhythm and rate with normal heart sounds 1 and 2. Soft systolic murmur noted. RESPIRATORY: Fair air entry bilaterally with few bibasilar crackles, especially on the left side posteriorly. GASTROINTESTINAL: Flat, soft, nontender, and nondistended with normal bowel sounds. EXTREMITIES: Grossly normal looking, atraumatic with no edema or erythema. CENTRAL NERVOUS SYSTEM: Conscious and alert. Oriented to person at least. The patient does not know where she is, however. She is conversational and making more sense today. DIAGNOSTIC DATA: CBC showed WBC count of 7.2, hemoglobin of 11.3, MCV of 87.2, and platelet of 343. Chemistry showed sodium 124, potassium 3.6, chloride 90, CO2 of 27, BUN 11, creatinine 0.62, glucose 84, calcium 8.2, phosphorus is 2.4, and magnesium is 2.0. ASSESSMENT: 1. Hyponatremia: Improving with fluid restriction. Sodium is currently 124. Hyponatremia is thought to be due to thiazide diuretics with possible baseline syndrome of inappropriate antidiuretic hormone. Urine and plasma electrolytes are consistent with syndrome of inappropriate antidiuretic hormone secretion. Hypokalemia also could lead to inability to excrete free water. 2. Hypokalemia: Improved. 3. Hypomagnesemia: Repleted. 4. Mental status change: Due to hyponatremia, superimposed on baseline dementia. 5. Acute encephalopathy due to hyponatremia. PLAN: 1. We will continue fluid restriction. 2. Continue to avoid diuretics, especially thiazide type. 3. [place] solute intake advised. 4. We will continue to monitor chemistry. 5. We will also give additional potassium to get serum potassium above 4. 6. Recommend discontinuation of normal saline. 7. Further treatment to follow depending on hospital course. Job ID: [id number]
--- NOTE | 2019-11-20 10:25 | PDOC.HOSPP ---
- Subjective Encounter Date: 11/20/19 Encounter Time: 10:23 Subjective: oriented to person - Objective Vital Signs & Weight: Vital Signs (12 hours) Temp Pulse Ox 11/20/19 07:26 97.2 F L 94 L 11/20/19 03:27 97.9 F 11/19/19 23:25 97.3 F L Weight Weight 129 lb Most Recent Monitor Data Heart Rate from ECG 64 NIBP 117/60 NIBP BP-Mean 79 Respiration from ECG 36 SpO2 75 I&O: 11/19/19 11/20/19 11/21/19 06:59 06:59 06:59 Intake Total 840 Output Total 1250 Balance -410 Result Diagrams: 11/20/19 03:08 11/20/19 07:11 Hospitalist ROS - Medication Medications: Active Medications Generic Name Dose Route Start Last Admin Trade Name Freq PRN Reason Stop Dose Admin Aspirin 81 mg 11/20/19 09:00 11/20/19 09:47 Ecotrin PO Not Given DAILY ASMITA Atorvastatin Calcium 20 mg 11/19/19 21:00 11/19/19 20:59 Lipitor PO 20 mg HS ASMITA Administration Carvedilol 3.125 mg 11/19/19 21:00 11/20/19 09:47 Coreg PO Not Given BID ASMITA Heparin Sodium (Porcine) 5,000 units 11/19/19 09:00 11/20/19 09:47 Heparin SC Not Given TID ASMITA Levothyroxine Sodium 125 mcg 11/20/19 06:00 11/20/19 05:32 Synthroid PO 125 mcg 0600 ASMITA Administration Sodium Chloride 10 ml 11/19/19 09:00 11/20/19 09:47 Flush - Normal Saline IVF Not Given Q12HR ASMIAT - Exam General Appearance: awake alert Neck: no JVD Heart: RRR, murmur present, II/IV Respiratory: CTAB, no wheezes Gastrointestinal: soft, normal bowel sounds Extremities: no edema Hosp A/P (1) Hyponatremia Code(s): E87.1 - HYPO-OSMOLALITY AND HYPONATREMIA Status: Acute (2) Hypokalemia Code(s): E87.6 - HYPOKALEMIA Status: Acute (3) Paroxysmal atrial fibrillation Code(s): I48.0 - PAROXYSMAL ATRIAL FIBRILLATION Status: Acute (4) Hypothyroid Code(s): E03.9 - HYPOTHYROIDISM, UNSPECIFIED Status: Chronic Qualifiers: Hypothyroidism type: unspecified Qualified Code(s): E03.9 - Hypothyroidism , unspecified (5) Dyslipidemia Code(s): E78.5 - HYPERLIPIDEMIA, UNSPECIFIED Status: Chronic - Plan move te medical DC iv NS K+ replacement fluid restriction daily BMP avoid diuretics
[2019-11-20 18:30] LABS: Anion Gap 12 mmol/L (10-20); BUN (Urea Nitrogen) 10 mg/dL (9.8-20.1); Calc. Creatinine Clearance 70 mL/min (70-130); Calcium 8.4 mg/dL (7.8-10.44); Carbon Dioxide 27 mmol/L (23-31); Chloride 92 mmol/L (98-107); Estimated GFR-MDRD Greater than 90; Glucose 69 mg/dL (83-110); Potassium 3.5 mmol/L (3.5-5.1); Sodium 127 mmol/L (136-145)
--- NOTE | 2019-11-20 19:54 | PQF ---
Q22 2018 [facility] Updated: CLINICAL DOCUMENTATION CLARIFICATION FORM: Patient Name: MATT RODRIGUEZ Account: [id number] Admit Date: 11/19/2019 Facility: [facility] Dear Dr. Sixto Johns Date: 11-20-19 Please exercise your independent, professional judgment in responding to the clarification form. Clinical indicators are provided on the bottom of this form for your review. Please check appropriate box(es): [ ] Encephalopathy: Type: [ ] Acute [ ] Subacute [ ] Chronic Etiology: [ x ] Metabolic [ ] Toxic [ ] Other (please specify) [ ] Transient Alteration of Awareness [ ] Other diagnosis [ ] Unable to determine In addition, please specify: Present on Admission (POA): [ ] Yes [ ] No [ ] Unable to determine For continuity of documentation, please document condition throughout progress notes and discharge summary. Thank You. To be completed by CDI/Coding staff for physician review: CLINICAL INDICATORS - SIGNS / SYMPTOMS / LABS / RESULTS AND LOCATION IN EMR: ER DX 11-19-19: ALTERED MENTAL STATUS, HYPONATREMIA H&P: 11-19-19 DR. MORALES: INCREASED SOMNOLENCE AND DISORIENTATION, CONFUSED CONSULT NOTE DR. BARTON 11-20-19: ACUTE ENCEPHALOPATHY. MOST LIKELY D/T SEVERE HYPONATREMIA SUPERIMPOSED ON BASELINE DEMENTIA , NOTED TO BE CONFUSED , UNABLE TO EXPRESS SELF AND ACTING ABNORMAL. RISK FACTORS / RESULTS AND LOCATION IN EMR: CONSULT NOTE DR. BARTON 11-20-19: ACUTE ENCEPHALOPATHY. MOST LIKELY D/T SEVERE HYPONATREMIA SUPERIMPOSED ON BASELINE DEMENTIA , NOTED TO BE CONFUSED , UNABLE TO EXPRESS SELF AND ACTING ABNORMAL. TREATMENTS / RESULTS AND LOCATION IN EMR: ER NOTES 11-19-19: NS IVF MAR: 11-20-19: POTASSIUM CHLORIDE IV CDS Signature: Catie Vancepatricia Phone #: [phone] Date: 11-19 This is a permanent part of the Medical Record [facility]
[2019-11-20] MEDS: Atorvastatin Calcium 20 MG TAB PO SCH (20:57)
[2019-11-21] MEDS: Levothyroxine Sodium 125 MCG TAB PO SCH (05:27)
[2019-11-21 06:44] LABS: Anion Gap 11 mmol/L (10-20); BUN (Urea Nitrogen) 10 mg/dL (9.8-20.1); Calc. Creatinine Clearance 70 mL/min (70-130); Calcium 8.3 mg/dL (7.8-10.44); Carbon Dioxide 26 mmol/L (23-31); Chloride 92 mmol/L (98-107); Estimated GFR-MDRD Greater than 90; Glucose 76 mg/dL (83-110); Potassium 3.4 mmol/L (3.5-5.1); Sodium 126 mmol/L (136-145)
[2019-11-21] MEDS: Carvedilol 3.125 MG TAB PO SCH ×2 (09:18→21:03)
[2019-11-21] MEDS: Aspirin 81 mg Enteric Coated Tablet PO SCH (09:18)
[2019-11-21] MEDS: Potassium Chloride 20 MEQ TAB PO SCH ×2 (09:19→10:33)
[2019-11-21] MEDS: Heparin 5,000 UNITS/ML VIAL SC SCH ×3 (09:20→21:02)
--- NOTE | 2019-11-21 12:47 | PDOC.HOSPP ---
- Subjective Encounter Date: 11/21/19 Encounter Time: 12:45 Subjective: alert, no sob - Objective Vital Signs & Weight: Vital Signs (12 hours) Temp Pulse Resp BP Pulse Ox 11/21/19 09:23 97.9 F 90 20 141/83 H 93 L 11/21/19 08:00 93 L 11/21/19 05:06 98.3 F 73 16 122/76 94 L Weight Admit Weight 129 lb 12.8 oz Weight 129 lb Most Recent Monitor Data Heart Rate from ECG 64 NIBP 117/60 NIBP BP-Mean 79 Respiration from ECG 36 SpO2 75 I&O: 11/20/19 11/21/19 11/22/19 06:59 06:59 06:59 Intake Total 840 350 200 Output Total 1250 Balance -410 350 200 Result Diagrams: 11/20/19 03:08 11/21/19 05:56 Additional Labs: Accuchecks 11/20/19 11/20/19 20:27 15:45 POC Glucose 114 H 86 Hospitalist ROS - Medication Medications: Active Medications Generic Name Dose Route Start Last Admin Trade Name Ruiq PRN Reason Stop Dose Admin Aspirin 81 mg 11/20/19 09:00 11/21/19 09:18 Ecotrin PO 81 mg DAILY ASMITA Administration Atorvastatin Calcium 20 mg 11/19/19 21:00 11/20/19 20:57 Lipitor PO 20 mg HS ASMITA Administration Carvedilol 3.125 mg 11/19/19 21:00 11/21/19 09:18 Coreg PO 3.125 mg BID ASMITA Administration Heparin Sodium (Porcine) 5,000 units 11/19/19 09:00 11/21/19 09:20 Heparin SC 5,000 units TID ASMITA Administration Levothyroxine Sodium 125 mcg 11/20/19 06:00 11/21/19 05:27 Synthroid PO 125 mcg 0600 ASMITA Administration Potassium Chloride 40 meq 11/21/19 10:15 11/21/19 10:27 Klor-Con PO 11/21/19 14:16 40 meq Q4H ASMITA Administration Sodium Chloride 10 ml 11/19/19 09:00 11/21/19 10:06 Flush - Normal Saline IVF Not Given Q12HR ASMITA - Exam General Appearance: awake alert Neck: no JVD Heart: RRR, no murmur Respiratory: CTAB Gastrointestinal: soft, normal bowel sounds Extremities: no edema Hosp A/P (1) Hyponatremia Code(s): E87.1 - HYPO-OSMOLALITY AND HYPONATREMIA Status: Acute (2) Hypokalemia Code(s): E87.6 - HYPOKALEMIA Status: Resolved (3) Paroxysmal atrial fibrillation Code(s): I48.0 - PAROXYSMAL ATRIAL FIBRILLATION Status: Chronic (4) Hypothyroid Code(s): E03.9 - HYPOTHYROIDISM, UNSPECIFIED Status: Chronic Qualifiers: Hypothyroidism type: unspecified Qualified Code(s): E03.9 - Hypothyroidism , unspecified (5) Dyslipidemia Code(s): E78.5 - HYPERLIPIDEMIA, UNSPECIFIED Status: Chronic - Plan stable, hypokalemia resolved, hyponatrelia improved call daughter re DC planning
--- NOTE | 2019-11-21 14:18 | PRG ---
DATE OF SERVICE: 11/21/2019 SERVICE: Nephrology. SUBJECTIVE: This is an 79-year-old female, seen in followup for hyponatremia. The patient with dementia was admitted due to mental status change and found to have severe hyponatremia of 115, which has improved. No new problem. Mental status has improved. The patient is more cooperative. Still having waxing and waning mental status. Denied nausea, vomiting, abdominal pain or edema. Able to feed herself. OBJECTIVE: VITAL SIGNS: Temperature 98.3, pulse 73, respiratory rate 16, SpO2 of 94% on room air, and blood pressure 122/76. I and O in the last 24 hours was inconclusive. GENERAL: Comfortable elderly female, in no obvious distress. Afebrile. Anicteric. Acyanotic. HEENT: Normocephalic and atraumatic. Oral mucosa is moist. CARDIOVASCULAR: Regular rhythm and rate with normal heart sounds 1 and 2. Soft systolic murmur noted. RESPIRATORY: Fair air entry bilaterally with left base crackle posteriorly. No rhonchi or use of accessory muscles was appreciated, however. GI: Full, soft, nontender, and nondistended with normal bowel sounds. EXTREMITIES: Grossly normal looking atraumatic with no obvious edema or erythema. SKIN: Ecchymoses and bruising of both hands and forearm noted. BANQUET STEWARD: Conscious and alert. Oriented at least to person. Has waxing and waning mental status, at times she knows where she is. Memory lapses noted. Cranial nerves 2 through 12 are grossly intact. DIAGNOSTIC DATA: Chemistry today showed sodium of 126, potassium of 3.4, chloride of 92, CO2 of 26, BUN of 10, creatinine 0.59, glucose 76, and calcium 8.3. ASSESSMENT AND PLAN: 1. Hyponatremia: Symptomatic. Improved from 115 to 126 this morning. The patient, however, reached a peak of 127 yesterday. Acute drop from 127 to 126, most likely related to lab error or hypokalemia. Kidneys are still unable to excrete free water due to persistent and recurrent hypokalemia. Baseline SIADH cannot be ruled out. This may well be purely due to thiazide diuretics. 2. Hypokalemia: Recurrent. 3. Hypertension: Control is acceptable. 4. Left base crackle: Infiltrate or pulmonary congestion. The patient with mental status changes, at increased risk of aspiration. She may also have congestive heart failure. The patient was on diuretics, suggestive of CHF. 5. Acute encephalopathy: Due to hyponatremia superimposed on baseline dementia. Improving. PLAN: 1. We will continue fluid restriction. We will however decrease free water to 1 L per 24 hours. We will increase solute intake by adding Ensure. 2. [place] solute intake advised. 3. We will monitor intake and output strictly. 4. We will replete serum potassium with 80 mEq of potassium today. 5. We will also recheck BMP later this afternoon. 6. Further treatment to follow depending on hospital course. Job ID: [id number]
[2019-11-21 14:30] LABS: Anion Gap 11 mmol/L (10-20); BUN (Urea Nitrogen) 13 mg/dL (9.8-20.1); Calc. Creatinine Clearance 64 mL/min (70-130); Calcium 8.8 mg/dL (7.8-10.44); Carbon Dioxide 31 mmol/L (23-31); Chloride 92 mmol/L (98-107); Estimated GFR-MDRD 88; Glucose 123 mg/dL (83-110); Potassium 4.3 mmol/L (3.5-5.1); Sodium 130 mmol/L (136-145)
[2019-11-21] MEDS: Mirtazapine 15 MG TAB PO SCH (21:02)
[2019-11-21] MEDS: Atorvastatin Calcium 20 MG TAB PO SCH (21:02)
[2019-11-22] MEDS: Levothyroxine Sodium 125 MCG TAB PO SCH (05:02)
[2019-11-22 05:59] LABS: Anion Gap 8 mmol/L (10-20); BUN (Urea Nitrogen) 11 mg/dL (9.8-20.1); Calc. Creatinine Clearance 69 mL/min (70-130); Calcium 8.3 mg/dL (7.8-10.44); Carbon Dioxide 30 mmol/L (23-31); Chloride 94 mmol/L (98-107); Estimated GFR-MDRD Greater than 90; Glucose 96 mg/dL (83-110); Sodium 128 mmol/L (136-145)
[2019-11-22 08:35] LABS: CRP (Inflammatory) 1.11 mg/dL (= or < 0.5); Magnesium 1.7 mg/dL (1.6-2.6); Phosphorus 2.6 mg/dL (2.3-4.7)
[2019-11-22] MEDS: Aspirin 81 mg Enteric Coated Tablet PO SCH (08:41)
[2019-11-22] MEDS: Carvedilol 3.125 MG TAB PO SCH ×2 (08:41→21:49)
[2019-11-22] MEDS: Lisinopril 2.5 MG TAB PO SCH (08:41)
[2019-11-22] MEDS: Heparin 5,000 UNITS/ML VIAL SC SCH ×3 (08:42→21:50)
[2019-11-22] MEDS ORDERED: Furosemide 20 MG TAB PO SCH ×2 (09:00)
[2019-11-22] MEDS: Oxybutynin ER 5 MG TAB PO SCH (10:47)
--- NOTE | 2019-11-22 12:08 | PRG ---
DATE OF SERVICE: 11/22/2019 SERVICE: Nephrology. SUBJECTIVE: An 79-year-old female with baseline dementia, admitted due to acute mental status change as well as hyponatremia. The patient was felt to have acute encephalopathy due to hyponatremia and treated appropriately with increase in sodium. Mental status seems to be back to baseline. No new problem. Conversational, though mental status waxes and wanes. Denied nausea, vomiting, abdominal pain, leg swelling, or chest pain. OBJECTIVE: VITAL SIGNS: Temperature 98.0, pulse 81, respiratory rate 18, SpO2 95% on room air, blood pressure is 132/75. I and O in the last 24 hours is inconclusive. GENERAL: Comfortable elderly female, in no distress. Afebrile. Anicteric. Acyanotic. HEENT: Normocephalic, atraumatic. Oral mucosa is moist. CARDIOVASCULAR: Regular rhythm and rate with normal heart sounds 1 and 2. RESPIRATORY: Fair air entry bilateral with bibasilar crackles, especially left base posteriorly. GI: Abdomen is full, soft, nontender, nondistended with normal bowel sounds. EXTREMITIES: Grossly normal looking atraumatic with no obvious edema or erythema. ANIMAL HUSBANDMAN: Conscious and awake. Oriented to person and place. Memory lapse is noted. DIAGNOSTIC DATA: Chemistry showed sodium 128, potassium 4.0, chloride 94, CO2 of 30, BUN 11, creatinine 0.6, glucose 96, calcium 8.3, phosphorus 2.6, magnesium 1.7. ASSESSMENT: 1. Hyponatremia: Symptomatic. Due to thiazide diuretic. Currently off thiazide diuretic and sodium level is trending up with fluid restriction. 2. Hypokalemia: Related to thiazide diuretics, repleted. 3. Hypomagnesemia: Repleted. 4. Hypertension: Control is acceptable. 5. Bibasal infiltrates: Suggestive of CHF. The patient was on diuretics at home. PLAN: 1. Continue fluid restriction. 2. Increase solute intake. 3. Agree with diuretic therapy. However, we need to avoid thiazide diuretics. We will increase Lasix to 40 daily. 4. We will also start magnesium supplementation. 5. The patient can be discharged from Nephrology point of view with a close followup with repeat BMP in 1 week. Job ID: [id number]
--- NOTE | 2019-11-22 14:26 | PDOC.HOSPP ---
- Subjective Encounter Date: 11/22/19 Encounter Time: 11:00 Subjective: pt up in bed confused. - Objective Vital Signs & Weight: Vital Signs (12 hours) Temp Pulse Resp BP BP Pulse Ox 11/22/19 08:41 81 132/75 11/22/19 08:01 98.0 F 81 18 132/75 95 Weight Admit Weight 129 lb 12.8 oz Weight 129 lb Most Recent Monitor Data Heart Rate from ECG 64 NIBP 117/60 NIBP BP-Mean 79 Respiration from ECG 36 SpO2 75 I&O: 11/21/19 11/22/19 11/23/19 06:59 06:59 06:59 Intake Total 350 860 Balance 350 860 Result Diagrams: 11/20/19 03:08 11/22/19 05:12 Hospitalist ROS - Review of Systems Other: unable to obtain - Medication Medications: Active Medications Generic Name Dose Route Start Last Admin Trade Name Freq PRN Reason Stop Dose Admin Aspirin 81 mg 11/20/19 09:00 11/22/19 08:41 Ecotrin PO 81 mg DAILY ASMITA Administration Atorvastatin Calcium 20 mg 11/19/19 21:00 11/21/19 21:02 Lipitor PO 20 mg HS ASMITA Administration Carvedilol 3.125 mg 11/19/19 21:00 11/22/19 08:41 Coreg PO 3.125 mg BID ASMITA Administration Furosemide 20 mg 11/22/19 09:00 11/22/19 08:41 Lasix PO 20 mg DAILY ASMITA Administration Heparin Sodium (Porcine) 5,000 units 11/19/19 09:00 11/22/19 08:42 Heparin SC Not Given TID ASMITA Levothyroxine Sodium 125 mcg 11/20/19 06:00 11/22/19 05:02 Synthroid PO 125 mcg 0600 ASMITA Administration Lisinopril 2.5 mg 11/22/19 09:00 11/22/19 08:41 Zestril PO 2.5 mg DAILY ASMITA Administration Mirtazapine 7.5 mg 11/21/19 21:00 11/21/19 21:02 Remeron PO 7.5 mg HS ASMITA Administration Oxybutynin Chloride 10 mg 11/22/19 09:00 11/22/19 10:47 Ditropan Xl PO Not Given DAILY ASMITA Sodium Chloride 10 ml 11/19/19 09:00 11/22/19 10:47 Flush - Normal Saline IVF Not Given Q12HR ASMITA - Exam Heart: negative: RRR, no murmur, no gallops, no rubs, normal peripheral pulses, irregular, diminshed peripheral pulses, murmur present, II/IV, III/IV Respiratory: negative: CTAB, no wheezes, no rales, no ronchi, normal chest expansion, no tachypnea, normal percussion, rales, rhonchi, tachypneic, wheezes Gastrointestinal: negative: soft, non-tender, non-distended, normal bowel sounds , no palpable masses, no hepatomegaly, no splenomegaly, no bruit, no guarding, no rigidity, tender to palpation, distended, diminished bowl sounds, voluntary guarding Extremities: negative: no cyanosis, no clubbing, no edema, 1+ LE edema, 2+ LE edema, clubbing Hosp A/P (1) Hyponatremia Code(s): E87.1 - HYPO-OSMOLALITY AND HYPONATREMIA Status: Acute (2) Hypothyroid Code(s): E03.9 - HYPOTHYROIDISM, UNSPECIFIED Status: Chronic Qualifiers: Hypothyroidism type: unspecified Qualified Code(s): E03.9 - Hypothyroidism , unspecified (3) Acute metabolic encephalopathy Code(s): G93.41 - METABOLIC ENCEPHALOPATHY Status: Acute (4) Dementia Code(s): F03.90 - UNSPECIFIED DEMENTIA WITHOUT BEHAVIORAL DISTURBANCE Status: Acute (5) History of hypertension Code(s): Z86.79 - PERSONAL HISTORY OF OTHER DISEASES OF THE CIRCULATORY SYSTEM Status: Chronic - Plan pt's Na improving. will get PT to see pt. will change lasix per nephro recommendation. per last admission pt takes lasix qod. pt is on asa/statin.
[2019-11-22] MEDS: Mirtazapine 15 MG TAB PO SCH (21:49)
[2019-11-22] MEDS: Atorvastatin Calcium 20 MG TAB PO SCH (21:49)
[2019-11-23] MEDS: Levothyroxine Sodium 125 MCG TAB PO SCH (06:04)
[2019-11-23 07:05] LABS: Anion Gap 10 mmol/L (10-20); BUN (Urea Nitrogen) 14 mg/dL (9.8-20.1); Calc. Creatinine Clearance 62 mL/min (70-130); Calcium 8.5 mg/dL (7.8-10.44); Carbon Dioxide 32 mmol/L (23-31); Chloride 96 mmol/L (98-107); Estimated GFR-MDRD 85; Glucose 98 mg/dL (83-110); Potassium 3.9 mmol/L (3.5-5.1); Sodium 134 mmol/L (136-145)
[2019-11-23] MEDS: Lisinopril 2.5 MG TAB PO SCH (09:07)
[2019-11-23] MEDS: Heparin 5,000 UNITS/ML VIAL SC SCH ×3 (09:07→21:23)
[2019-11-23] MEDS: Oxybutynin ER 5 MG TAB PO SCH (09:07)
[2019-11-23] MEDS: Carvedilol 3.125 MG TAB PO SCH ×2 (09:07→21:22)
[2019-11-23] MEDS: Aspirin 81 mg Enteric Coated Tablet PO SCH (09:07)
--- NOTE | 2019-11-23 13:35 | PRG ---
DATE OF SERVICE: 11/23/2019 SERVICE: Nephrology. SUBJECTIVE: An 79-year-old female with known history of dementia, admitted due to acute mental status change and hyponatremia. The patient is clinically improved. Mental status seems back to baseline. She is feeding herself and tolerating oral intake well. Of note, the patient was recently started on thiazide diuretic before onset of symptoms. Denied nausea, vomiting, abdominal pain, chest pain, or shortness of breath. OBJECTIVE: VITAL SIGNS: Temperature 97.7, pulse 73, respiratory rate 20, SpO2 of 100% on room air, blood pressure 101/66. I and O in the last 24 hours were inconclusive as the patient had diaper. Weight, however, is down from 129 on admission to 122. GENERAL: Comfortable elderly female, in no distress. Afebrile. Anicteric. Acyanotic. HEENT: Normocephalic and atraumatic. Oral mucosa is moist. NECK: Supple with no JVD. CARDIOVASCULAR: Regular rhythm and rate with normal heart sounds 1 and 2. RESPIRATORY: Fair air entry bilaterally with left base crackle posteriorly. No rhonchi or use of accessory muscles appreciated. GI: Full, soft, nontender, and nondistended with normal bowel sounds. EXTREMITIES: Grossly normal looking and atraumatic with no edema or erythema. ROAD MARKER: Conscious and alert. Oriented to person and place. No tremor. Seems cooperative. DIAGNOSTIC DATA: Chemistry today showed sodium 134, potassium 3.9, chloride 96, CO2 of 32, BUN 14, creatinine 0.67, glucose 98, calcium 8.5. ASSESSMENT: 1. Hyponatremia: Severe and symptomatic. Markedly improved with fluid restriction. 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 2. Presumed chronic obstructive pulmonary disease. 3. Presumed syndrome of inappropriate antidiuretic hormone secretion. 4. Acute encephalopathy due to hyponatremia. PLAN: 1. Continue fluid restriction. 2. [place] solute intake advised. 3. Continue diuretic therapy with furosemide. Avoid thiazide diuretic. 4. With improvement of plasma sodium to 134, the patient can be discharged from Nephrology point of view. Follow up with PCP and/or my very self courier delivery driver is recommended. Nephrology will sign off at this point. Job ID: [id number]
--- NOTE | 2019-11-23 17:49 | PDOC.HOSPP ---
- Subjective Encounter Date: 11/23/19 Encounter Time: 10:30 Subjective: pt up in bed confused - Objective Vital Signs & Weight: Vital Signs (12 hours) Temp Pulse Resp BP Pulse Ox 11/23/19 09:07 73 11/23/19 08:00 97.7 F 73 20 101/66 100 Weight Admit Weight 129 lb 12.8 oz Weight 122 lb 9.6 oz Most Recent Monitor Data Heart Rate from ECG 64 NIBP 117/60 NIBP BP-Mean 79 Respiration from ECG 36 SpO2 75 I&O: 11/22/19 11/23/19 11/24/19 06:59 06:59 06:59 Intake Total 860 1000 Output Total 925 200 Balance 860 75 -200 Result Diagrams: 11/20/19 03:08 11/23/19 06:22 Additional Labs: Accuchecks 11/23/19 05:37 POC Glucose 107 Hospitalist ROS - Review of Systems Other: unable to obtain - Medication Medications: Active Medications Generic Name Dose Route Start Last Admin Trade Name Ruiq PRN Reason Stop Dose Admin Aspirin 81 mg 11/20/19 09:00 11/23/19 09:07 Ecotrin PO Not Given DAILY [facility] Atorvastatin Calcium 20 mg 11/19/19 21:00 11/22/19 21:49 Lipitor PO Not Given HS [facility] Carvedilol 3.125 mg 11/19/19 21:00 11/23/19 09:07 Coreg PO Not Given BID [facility] Heparin Sodium (Porcine) 5,000 units 11/19/19 09:00 11/23/19 15:45 Heparin SC Not Given TID [facility] Levothyroxine Sodium 125 mcg 11/20/19 06:00 11/23/19 06:04 Synthroid PO Not Given 0600 ASMITA Lisinopril 2.5 mg 11/22/19 09:00 11/23/19 09:07 Zestril PO Not Given DAILY [facility] Mirtazapine 7.5 mg 11/21/19 21:00 11/22/19 21:49 Remeron PO Not Given HS [facility] Oxybutynin Chloride 10 mg 11/22/19 09:00 11/23/19 09:07 Ditropan Xl PO Not Given DAILY [facility] Sodium Chloride 10 ml 11/19/19 09:00 11/23/19 09:07 Flush - Normal Saline IVF Not Given Q12HR ASMITA - Exam Neck: negative: supple, symmetric, no JVD, no thyromegaly, no lymphadenopathy, no carotid bruit, JVD Heart: negative: RRR, no murmur, no gallops, no rubs, normal peripheral pulses, irregular, diminshed peripheral pulses, murmur present, II/IV, III/IV Respiratory: negative: CTAB, no wheezes, no rales, no ronchi, normal chest expansion, no tachypnea, normal percussion, rales, rhonchi, tachypneic, wheezes Hosp A/P (1) Hyponatremia Code(s): E87.1 - HYPO-OSMOLALITY AND HYPONATREMIA Status: Acute (2) Hypothyroid Code(s): E03.9 - HYPOTHYROIDISM, UNSPECIFIED Status: Chronic Qualifiers: Hypothyroidism type: unspecified Qualified Code(s): E03.9 - Hypothyroidism , unspecified (3) Acute metabolic encephalopathy Code(s): G93.41 - METABOLIC ENCEPHALOPATHY Status: Acute (4) Dementia Code(s): F03.90 - UNSPECIFIED DEMENTIA WITHOUT BEHAVIORAL DISTURBANCE Status: Acute (5) History of hypertension Code(s): Z86.79 - PERSONAL HISTORY OF OTHER DISEASES OF THE CIRCULATORY SYSTEM Status: Chronic - Plan pt's Na improving. will get PT to see pt. will change lasix per nephro recommendation. per last admission pt takes lasix qod. pt is on asa/statin. 11/22 spoke with daughter and updated her she does not feel comfortable taking pt home if she is unable to move around. PT was able to walk pt only a few steps. will gt pt to get in rehab. Also pt has not been eating much per daughter which could be contributing to her hyponatremia.
[2019-11-23] MEDS: Mirtazapine 15 MG TAB PO SCH (21:21)
[2019-11-23] MEDS: Atorvastatin Calcium 20 MG TAB PO SCH (21:21)
[2019-11-24] MEDS: Acetaminophen 325 MG TAB PO PRN ×2 (03:05→20:31)
[2019-11-24] MEDS: Levothyroxine Sodium 125 MCG TAB PO SCH (05:03)
[2019-11-24] MEDS: Lisinopril 2.5 MG TAB PO SCH (08:40)
[2019-11-24] MEDS: Aspirin 81 mg Enteric Coated Tablet PO SCH (08:40)
[2019-11-24] MEDS: Carvedilol 3.125 MG TAB PO SCH ×2 (08:40→20:32)
[2019-11-24] MEDS: Heparin 5,000 UNITS/ML VIAL SC SCH ×3 (08:41→21:50)
[2019-11-24] MEDS: Oxybutynin ER 5 MG TAB PO SCH (08:58)
[2019-11-24] MEDS ORDERED: Furosemide 20 MG TAB PO SCH (09:00)
[2019-11-24 09:14] LABS: Anion Gap 11 mmol/L (10-20); BUN (Urea Nitrogen) 18 mg/dL (9.8-20.1); Calc. Creatinine Clearance 59 mL/min (70-130); Calcium 8.8 mg/dL (7.8-10.44); Carbon Dioxide 30 mmol/L (23-31); Chloride 96 mmol/L (98-107); Estimated GFR-MDRD 85; Glucose 99 mg/dL (83-110); Sodium 133 mmol/L (136-145)
--- NOTE | 2019-11-24 15:36 | PDOC.HOSPP ---
- Subjective Encounter Date: 11/24/19 Encounter Time: 11:30 Subjective: pt up in bed oriented x2 - Objective Vital Signs & Weight: Vital Signs (12 hours) Temp Pulse Resp BP BP Pulse Ox 11/24/19 08:40 77 113/71 11/24/19 08:00 95 11/24/19 07:25 97.6 F 77 15 113/71 95 Weight Admit Weight 129 lb 12.8 oz Weight 122 lb 9.6 oz Most Recent Monitor Data Heart Rate from ECG 64 NIBP 117/60 NIBP BP-Mean 79 Respiration from ECG 36 SpO2 75 I&O: 11/23/19 11/24/19 11/25/19 06:59 06:59 06:59 Intake Total 1000 1480 Output Total 925 2750 Balance 75 -1270 Result Diagrams: 11/20/19 03:08 11/24/19 08:33 Hospitalist ROS - Review of Systems Cardiovascular: denies: chest pain, palpitations, orthopnea, paroxysmal noc. dyspnea, edema, light headedness, other Gastrointestinal: denies: nausea, vomiting, abdominal pain, diarrhea, constipation, melena, hematochezia, other Genitourinary: denies: dysuria, frequency, incontinence, hematuria, retention, other - Medication Medications: Active Medications Generic Name Dose Route Start Last Admin Trade Name Freq PRN Reason Stop Dose Admin Acetaminophen 650 mg 11/24/19 02:53 11/24/19 03:05 Tylenol PO 650 mg Q4H PRN Administration Headache/Fever/MILD Pain 1-3 Aspirin 81 mg 11/20/19 09:00 11/24/19 08:40 Ecotrin PO 81 mg DAILY ASMITA Administration Atorvastatin Calcium 20 mg 11/19/19 21:00 11/23/19 21:21 Lipitor PO 20 mg HS ASMITA Administration Carvedilol 3.125 mg 11/19/19 21:00 11/24/19 08:40 Coreg PO 3.125 mg BID ASMITA Administration Furosemide 40 mg 11/24/19 09:00 11/24/19 08:40 Lasix PO 40 mg Q2D ASMITA Administration Heparin Sodium (Porcine) 5,000 units 11/19/19 09:00 11/24/19 08:41 Heparin SC Not Given TID ASMITA Levothyroxine Sodium 125 mcg 11/20/19 06:00 11/24/19 05:03 Synthroid PO 125 mcg 0600 ASMITA Administration Lisinopril 2.5 mg 11/22/19 09:00 11/24/19 08:40 Zestril PO 2.5 mg DAILY ASMITA Administration Mirtazapine 7.5 mg 11/21/19 21:00 11/23/19 21:21 Remeron PO 7.5 mg HS ASMITA Administration Oxybutynin Chloride 10 mg 11/22/19 09:00 11/24/19 08:58 Ditropan Xl PO 10 mg DAILY ASMITA Administration Sodium Chloride 10 ml 11/19/19 09:00 11/24/19 09:01 Flush - Normal Saline IVF Not Given Q12HR ASMITA - Exam Neck: negative: supple, symmetric, no JVD, no thyromegaly, no lymphadenopathy, no carotid bruit, JVD Heart: negative: RRR, no murmur, no gallops, no rubs, normal peripheral pulses, irregular, diminshed peripheral pulses, murmur present, II/IV, III/IV Respiratory: negative: CTAB, no wheezes, no rales, no ronchi, normal chest expansion, no tachypnea, normal percussion, rales, rhonchi, tachypneic, wheezes Gastrointestinal: negative: soft, non-tender, non-distended, normal bowel sounds , no palpable masses, no hepatomegaly, no splenomegaly, no bruit, no guarding, no rigidity, tender to palpation, distended, diminished bowl sounds, voluntary guarding Hosp A/P (1) Hyponatremia Code(s): E87.1 - HYPO-OSMOLALITY AND HYPONATREMIA Status: Acute (2) Hypothyroid Code(s): E03.9 - HYPOTHYROIDISM, UNSPECIFIED Status: Chronic Qualifiers: Hypothyroidism type: unspecified Qualified Code(s): E03.9 - Hypothyroidism , unspecified (3) Acute metabolic encephalopathy Code(s): G93.41 - METABOLIC ENCEPHALOPATHY Status: Acute (4) Dementia Code(s): F03.90 - UNSPECIFIED DEMENTIA WITHOUT BEHAVIORAL DISTURBANCE Status: Acute (5) History of hypertension Code(s): Z86.79 - PERSONAL HISTORY OF OTHER DISEASES OF THE CIRCULATORY SYSTEM Status: Chronic - Plan pt's Na improving. will get PT to see pt. will change lasix per nephro recommendation. per last admission pt takes lasix qod. pt is on asa/statin. 11/22 spoke with daughter and updated her she does not feel comfortable taking pt home if she is unable to move around. PT was able to walk pt only a few steps. will gt pt to get in rehab. Also pt has not been eating much per daughter which could be contributing to her hyponatremia. 11/23 we did evaluate her again today since she was a bit more oriented. she will need snf vs rehab. she is on pureed diet with thin liquids.
[2019-11-24] MEDS: Atorvastatin Calcium 20 MG TAB PO SCH (20:32)
[2019-11-24] MEDS: Mirtazapine 15 MG TAB PO SCH (20:32)
[2019-11-24] MEDS ORDERED: Fluticasone Propionate Nasal Spray 16 gm Bottle NASAL PRN (21:06)
[2019-11-25] MEDS: Heparin 5,000 UNITS/ML VIAL SC SCH ×2 (09:24→15:18)
[2019-11-25] MEDS: Lisinopril 2.5 MG TAB PO SCH (09:36)
[2019-11-25] MEDS ORDERED: Magnevist 469MG/ML 20 ML VIAL ONE (10:05)
[2019-11-25 10:25] LABS: #Basophils 0.1 thou/uL (0.0-0.2); #Eosinphils 0.3 thou/uL (0.0-0.7); #Lymphocytes 1.2 thou/uL (1.20-3.40); #Monocytes 0.5 thou/uL (0.11-0.59); #Neutrophils 2.6 thou/uL (1.40-6.50); %Basophils 1.9 % (0.0-1.0); %Eosinophils 5.6 % (0.0-10.0); %Lymphocytes 25.7 % (21.0-51.0); %Monocytes 9.7 % (0.0-10.0); %Neutrophils 57.1 % (42.0-75.0); Hemoglobin 12.5 g/dL (12.0-16.0); Mean Corpuscular HGB CONC 31.3 g/dL (32.0-36.0); Mean Corpuscular Hemoglobin 28.6 pg (27.0-31.0); Mean Corpuscular Volume 91.3 fL (78.0-98.0); Mean Platelet Volume 6.8 fL (7.4-10.4); Platelet Count 358 thou/uL (130-400); RBC Distribution Width 14.4 % (11.5-14.5); Red Blood Cell (RBC) Count 4.36 mill/uL (4.20-5.40); White Blood Cell (WBC) Count 4.6 thou/uL (4.8-10.8)
--- NOTE | 2019-11-25 10:38 | RAD ---
EXAM: Single view of the chest HISTORY: Aspiration. Code Green. COMPARISON: 11/19/2019 FINDINGS: Single view of the chest shows an enlarged but stable cardiomediastinal silhouette. Athero sclerotic calcifications are seen in the aorta. There appears be a calcified granuloma projects over the right upper lobe. No consolidation is seen. Degenerative changes are seen in the spine. IMPRESSION: No evidence of acute cardiopulmonary disease
[2019-11-25 10:40] LABS: Phosphorus 4.1 mg/dL (2.3-4.7)
--- NOTE | 2019-11-25 11:15 | MRI ---
EXAM: MRI of the brain without and with contrast HISTORY: Unresponsiveness COMPARISON: None TECHNIQUE: Multiplanar multisequence MR images were obtained of the brain without and with IV contras t. FINDINGS: Diffuse scattered foci of high T2/FLAIR signal in the subcortical and periventricular white matter ar e likely secondary to small vessels imaged disease. No restricted diffusion. No abnormal enhancement. No hydronephrosis. No extra-axial fluid collection or intracranial hemorrhage. The expected flow voids are present. Corpus callosum, pituitary, and craniocervical junction are within normal limits. The calvarium and overlying soft tissues are unremarkable. The paranasal sinuses and mastoid air cells are well aerated. IMPRESSION: Small vessel ischemic disease without evidence of acute intracranial abnormality.
[2019-11-25 13:16] LABS: Anion Gap 13 mmol/L (10-20); BUN (Urea Nitrogen) 21 mg/dL (9.8-20.1); Calc. Creatinine Clearance 55 mL/min (70-130); Calcium 8.9 mg/dL (7.8-10.44); Carbon Dioxide 29 mmol/L (23-31); Chloride 96 mmol/L (98-107); Estimated GFR-MDRD 78; Glucose 93 mg/dL (83-110); Sodium 134 mmol/L (136-145)
[2019-11-25] MEDS: Levothyroxine Sodium 125 MCG TAB PO SCH (13:25)
[2019-11-25] MEDS: Oxybutynin ER 5 MG TAB PO SCH (13:26)
[2019-11-25] MEDS: Aspirin 81 mg Enteric Coated Tablet PO SCH (13:26)
[2019-11-25] MEDS: Carvedilol 3.125 MG TAB PO SCH (13:27)
[2019-11-25 14:14] LABS: Bacteria/HPF None Seen HPF (None Seen); Bilirubin Negative (Negative); Blood, Urine Negative (Negative); Clarity Clear (Clear); Glucose, Urine (Dipstick) Normal (Negative); Ketone, Urine Negative (Negative); Leukocyte 25 Leu/uL (Negative); Nitrite Negative (Negative); Protein, Urine (Dipstick) 10 mg/dL (Neg-Trace); RBC/HPF 0-3 HPF (0-3); Specific Gravity, Urine 1.014 (1.002-1.036); Squamous Epithelial 0-3 HPF (0-3); Urobilinogen Normal mg/dL (Less than 2); WBC/HPF 0-3 HPF (0-3); pH, Urine 6.5 (5.0-9.0)
[2019-11-25 14:21] VITALS: BMI 21.7
[2019-11-25 14:24] LABS: Urine Culture Reflex Yes Yes
--- NOTE | 2019-11-25 15:42 | PDOC.EVN ---
Event Note - Event Note Event Note: pt per nursing staff was not talking at this time a rapid response was called. I evaluate the pt and he was following commands but would not talk. MRI brain ordered and was negative. Her labs including ua/cxr/cbc/bmp normal. spoke with who states that she does that at times given her dementia. she is responding now and talking. I do not think this is a seizure since she was following commands but was not talking. will discharge her to snf. She will been on a nectar thick liquid and puree diet.
[2019-11-25 16:07] VITALS: TEMP 98.5
--- NOTE | 2019-11-25 16:39 | DIS ---
DATE OF ADMISSION: 11/19/2019 DATE OF DISCHARGE: 11/25/2019 DISCHARGE DIAGNOSES: As of the following; 1. Acute metabolic encephalopathy, most likely secondary to hyponatremia. 2. Hyponatremia. 3. Hypothyroidism. 4. Moderate calorie malnutrition. 5. Dementia. 6. Hypertension. HOSPITAL COURSE: The patient is an 79-year-old female, who initially presented to the hospital with worsening mentation. The patient at baseline is confused per family. She is able to get up and move around with assistance with her family. She was found to be severely hyponatremic. Hyponatremia was attributed to may be multifactorial. Family states that she has not really been eating very much and it was noted that she was on thiazide, however, she was only on Lasix. She was also on , which was discontinued. Her sodium improved significantly. She was seen by Nephrology here in the hospital. The patient in the hospital had an episode of where she was just not speaking, she was able to move all extremities, however, would not speak for a few minutes. She was able to track. At this time, we went ahead and did an MRI brain, which did not show any acute abnormalities. We repeated lab work including urine, which was negative. I did speak with the patient's , who stated that she does that at times given the fact that she has severe dementia. The patient at this time will be discharged to SNF because she is severely deconditioned. When PT tried to get her up and move around, she was unable to do so. While the patient has been taking down to the MRI during this episode, she started talking without any issues, unlikely to be a seizure since the patient never lost consciousness and she was able to track and was not staring off. Her home medications will be as of the following; she is going to take, 1. Lasix 40 mg every 2 days. 2. Aspirin 81 mg daily. 3. Atorvastatin 20 mg daily. 4. Levothyroxine 125 daily. 5. at bedtime. 6. Coreg 3.125 b.i.d. 7. Lisinopril 2.5 mg p.o. daily. PHYSICAL EXAMINATION: VITAL SIGNS: Temperature 97.8, pulse 71, respiratory rate 18, oxygen saturation 94% on room air, and blood pressure 119/75. GENERAL: She is awake, alert, and oriented x2. CV: S1 and S2 present. No murmurs, rubs, or gallops. ABDOMEN: Soft and nontender. Bowel sounds are present x2. Again, she will be discharged to care home facility and she will follow up with her Primary and also with Nephrology as outpatient. Job ID: [id number]
[2019-11-25 19:13] VITALS: BP 112/70
--- NOTE | 2019-11-26 08:33 | PQF ---
CLINICAL DOCUMENTATION CLARIFICATION FORM: Dear : Jacki Cardenas Date / Time: 11/26/2019 0832 Please exercise your independent, professional judgment in responding to the clarification form. Clinical indicators are provided on the bottom of this form for your review Please check appropriate box(es): [ ] Hyponatremia please specify etiology, if known [ ] Hyponatremia due to SIADH (Syndrome of Inappropriate Secretion of Antidiuretic Hormone) [ ] Other diagnosis [ x ] Unable to determine multifactoral Physician Signature: Date/Time: For continuity of documentation, please document condition throughout progress notes and discharge summary. Thank You. To be completed by CDI/Coding staff for physician review: Present Clinical Indicators - Signs / Symptoms / Labs Results and Location in Medical Record [ X ] Na level 115 (11/18); 123 (11/19); 126 (11/20); 128 (11/21); 134 (11/22); 133 (); 134 (11/24) Laborator, Chemistry [ X ] Acute metabolic encephalopathy, most likely secondary to hyponatremia DS p1 11/24 Dr. Cardenas [ X ] She was found to be severely hyponatremic. Hyponatremia was attributed to may be multifactorial DS p1 11/24 Dr. Cardenas [ X ] presenting with confusion, most likely secondary to severe hyponatremia in the setting of diuretic therapy H&P p2 11/18 Dr. 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 Hernandez [ X ] Urine Osmolality 325 Laborator, Urines [ X ] Kidneys are still unable to excrete free water due to persistent and recurrent hypokalemia PN p1 11/20 Dr. 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 Hernandez Present Risk Factors Results and Location in Medical Record [ X ] Hypothyroid Hospitalist PN 11/18 Dr. Johns [ X ] 79 years old H&P 11/18 Dr. Arcos [ X ] Dementia H&P 11/18 Dr. Arcos [ X ] Diuretics H&P 11/18 Dr. Arcos [ X ] HTN ED Notes 11/18 [ X ] CHF ED Notes 11/18 [ X ] Moderate calorie malnutrition DS 11/24 Present Treatments Results and Location in Medical Record [ X ] Nephrology Consult Consult 11/18 Dr. Hernandez [ X ] Series of electrolyte labs Laboratory, Chemistry [ X ] Fluid restriction PN p1 11/22 Dr. Hernandez [ X ] Sodium chloride 1000mL IV 75 ml/hr JUL 19 [ X ] Potassium chloride 20 meq IV JUL 19 CDS/Mechanical Laboratory Technician Signature: Constance Gunter Phone #: ext [phone] Date/Time: 11/25/2019 0832 This is a permanent part of the Medical Record [facility]
--- NOTE | 2019-11-27 22:05 | EKG ---
Test Reason : CODE GREEN Blood Pressure : / mmHG Vent. Rate : 085 BPM Atrial Rate : 085 BPM P-R Int : 156 ms QRS Dur : 144 ms QT Int : 452 ms P-R-T Axes : 038 -25 120 degrees QTc Int : 537 ms Normal sinus rhythm Left bundle branch block Abnormal ECG When compared with ECG of 19-NOV-2019 03:36, (Unconfirmed) QRS duration has decreased Confirmed by Zbigniew MORA ([id number]) on 11/27/2019 10:05:28 PM Referred By: LATONIA Confirmed By:Zbigniew MORA
== END 2019-11-25 16:09 | disposition home or self-care (01) | DRG 640 ==
LOC: ERS 03:13 → IMCU/EMU 05:38 → T4-A 11-20 11:52
PROVIDERS: ADMIT Internal Medicine; ATTEND Internal Medicine
DX: E87.1 Hypo-osmolality and hyponatremia (principal); G93.41 Metabolic encephalopathy; E44.0 Moderate protein-calorie malnutrition; E03.9 Hypothyroidism, unspecified; F03.90 Unspecified dementia, unspecified severity, without behavioral disturbance, psychotic disturbance, mood disturbance, and anxiety; I10 Essential (primary) hypertension; I48.0 Paroxysmal atrial fibrillation; E78.00 Pure hypercholesterolemia, unspecified; E87.6 Hypokalemia; E83.42 Hypomagnesemia; Z88.1 Allergy status to other antibiotic agents; Z88.0 Allergy status to penicillin; Z88.8 Allergy status to other drugs, medicaments and biological substances; Z68.21 Body mass index [BMI] 21.0-21.9, adult; Z79.899 Other long term (current) drug therapy; Z79.82 Long term (current) use of aspirin; Z79.890 Hormone replacement therapy
CPT/HCPCS: 36415; 36416; 51701; 70450; 70553; 71045; 80048; 80053; 81001; 81003; 83605; 83735; 83880; 83930; 83935; 84100; 84443; 84484; 85025; 86140; 87077; 87086; 87186; 93005; 93010; 96360; A9579; J1644; J3475; J3480; J3490